=== PATIENT | male | born 1960 | race Caucasian/White ===

== ENCOUNTER 2019-05-19 15:44 | Emergency (ER) | payer BC ==
[2019-05-19] MEDS ORDERED: FLU Vacc QS2019-20(6MOS+)/PF 60 MCG/0.5 ML SYRINGE IM ONE (16:15)
[2019-05-19] MEDS ORDERED: Meclizine 12.5 MG Tab PO ONE (16:22)
[2019-05-19] MEDS ORDERED: Sodium Chloride 0.9% 500 ML IV SCH (16:30)
[2019-05-19] MEDS ORDERED: Sodium Chloride 0.9% 1,000 ML IV ONE (16:32)
--- NOTE | 2019-05-19 16:33 | EDM.PDOC ---
ED HPI GENERAL MEDICAL PROBLEM - General Source of Information: Reports: Patient History Limitations: Reports: No Limitations <Rasheeda Espinosa - Last Filed: 05/19/19 17:20> - History of Present Illness Onset: Gradual Duration: Day(s): (Yesterday) Severity: Moderate Improves with: Reports: None Worsens with: Reports: None Associated Symptoms: Reports: No Other Symptoms <Willie Jordan - Last Filed: 05/19/19 18:30> - General Chief Complaint: Syncope Stated Complaint: DIZZY Time Seen by Provider: 05/19/19 15:57 - History of Present Illness INITIAL COMMENTS - FREE TEXT/NARRATIVE: 59 year old male with complaints of dizziness when bending over. Pt states that last night he was bending over helping to get his undressed, she is on hospice, and he became dizzy and nauseated. When he stood up the dizziness resolved. States today that when he stands up he initially is dizzy but if he stands for a minute, this resolves. Also has dizziness when he looks up at the ceiling. Denies dizziness when laying flat and turning his head from side to side. (Rasheeda Espinosa) - Related Data Allergies Allergy/AdvReac Type Severity Reaction Status Date / Time No Known Allergies Allergy Verified 05/19/19 15:57 Home Meds: Home Meds Aspirin [Halfprin] 81 mg PO DAILY 05/19/19 [History] Fish Oil/[place]-3 Fatty Acids [Fish Oil 1,000 MG] 1,000 mg PO DAILY 05/19/19 [ History] Meclizine [Antivert] 25 mg PO Q6H PRN #30 tab 05/19/19 [Rx] Multivitamin [Multivitamins] 1 tab PO DAILY 05/19/19 [History] Rosuvastatin [Crestor] 20 mg PO DAILY 05/19/19 [History] Past Medical History HEENT History: Reports: Impaired Vision Other HEENT History: wears eyeglasses. Cardiovascular History: Reports: High Cholesterol Musculoskeletal History: Reports: Fracture Dermatologic History: Reports: Psoriasis - Infectious Disease History Infectious Disease History: Reports: Chicken Pox, Measles, Mumps, Shingles - Past Surgical History Musculoskeletal Surgical History: Reports: Arthroscopic Knee <Rasheeda Espinosa - Last Filed: 05/19/19 17:20> Social & Family History - Caffeine Use Caffeine Use: Reports: Coffee - Recreational Drug Use Recreational Drug Use: No <Rasheeda Espinosa - Last Filed: 05/19/19 17:20> ED ROS GENERAL - Review of Systems Review Of Systems: See Below Constitutional: Reports: No Symptoms HEENT: Reports: No Symptoms Respiratory: Reports: No Symptoms Cardiovascular: Reports: Lightheadedness. Denies: Chest Pain, Palpitations Endocrine: Reports: No Symptoms GI/Abdominal: Reports: Nausea : Reports: No Symptoms Musculoskeletal: Reports: No Symptoms Skin: Reports: Rash Neurological: Reports: Dizziness, Numbness (numbness to front of thighs) Psychiatric: Reports: No Symptoms Hematologic/Lymphatic: Reports: No Symptoms Immunologic: Reports: No Symptoms <Rasheeda Espinosa - Last Filed: 05/19/19 17:20> - Physical Exam Exam: See Below Exam Limited By: No Limitations General Appearance: Alert, WD/WN, No Apparent Distress Eye Exam: Bilateral Eye: PERRL Ears: Normal External Exam Nose: Normal Inspection Throat/Mouth: Normal Inspection, Normal Lips Head Exam: Atraumatic, Normocephalic Neck: Normal Inspection, Supple Respiratory/Chest: No Respiratory Distress, Lungs Clear, Normal Breath Sounds, No Accessory Muscle Use, Chest Non-Tender Cardiovascular: Normal Peripheral Pulses, Regular Rate, Rhythm, No Edema, No Murmur GI/Abdominal: Normal Bowel Sounds, Soft, Non-Tender, No Distention (Male) Exam: Deferred Rectal (Males) Exam: Deferred Neuro Exam (Abbreviated): Alert, Oriented, CN II-XII Intact, Normal Cognition, No Motor/Sensory Deficits Back Exam: Normal Inspection, Full Range of Motion Extremities: Normal Inspection, Normal Range of Motion, Non-Tender, No Pedal Edema Psychiatric: Normal Affect, Normal Mood Skin Exam: Warm, Dry, Intact, Normal Color, Rash (rash noted to center of chest/ pt reports that he's had for several years and is currently treated by his provider) <Rasheeda Espinosa - Last Filed: 05/19/19 17:20> EKG INTERPRETATION EKG Date: 05/19/19 Time: 16:37 Rhythm: Other (sinus bradycardia) Rate (Beats/Min): 54 [place]: Normal P-Wave: Present QRS: Normal ST-T: Normal QT: Normal <Willie Jordan - Last Filed: 05/19/19 18:30> Course <Rasheeda Espinosa - Last Filed: 05/19/19 17:20> <Willie Jordan - Last Filed: 05/19/19 18:30> - Vital Signs Last Recorded V/S: Last Vital Signs Temp 97.9 F 05/19/19 15:50 Pulse 58 L 05/19/19 15:50 Resp 12 05/19/19 15:50 BP 152/86 H 05/19/19 15:50 Pulse Ox 100 05/19/19 15:50 Orthostatic Blood Pressure [ 125/80 Standing] Orthostatic Blood Pressure [ 150/93 Sitting] Orthostatic Blood Pressure [ 152/86 Supine] - Orders/Labs/Meds Orders: Active Orders 24 hr Category Date Time Status EKG Documentation Completion [RC] STAT Care 05/19/19 16:22 Active Influenza Vaccine Charge [RC] .DISCHARGE Care 05/19/19 16:09 Active Chest 2V [CR] Stat Exams 05/19/19 16:22 Taken Head wo Cont [CT] Stat Exams 05/19/19 16:22 Taken Meclizine [Antivert] Med 05/19/19 18:23 Once 25 mg PO ONETIME ONE Labs: Laboratory Tests 05/19/19 05/19/19 Range/Units 16:40 16:40 WBC 11.87 H (4.23-9.07) K/mm3 RBC 5.58 (4.63-6.08) M/mm3 Hgb 15.8 (13.7-17.5) gm/dl Hct 45.4 (40.1-51.0) % MCV 81.4 (79.0-92.2) fl MCH 28.3 (25.7-32.2) pg MCHC 34.8 (32.2-35.5) g/dl RDW Std Deviation 40.2 (35.1-43.9) fL Plt Count 214 (163-337) K/mm3 MPV 10.5 (9.4-12.3) fl Neut % (Auto) 76.3 H (34.0-67.9) % Lymph % (Auto) 12.6 L (21.8-53.1) % [place] % (Auto) 8.3 (5.3-12.2) % Eos % (Auto) 2.2 (0.8-7.0) Baso % (Auto) 0.3 (0.1-1.2) % Neut # (Auto) 9.08 H (1.78-5.38) K/mm3 Lymph # (Auto) 1.49 (1.32-3.57) K/mm3 [place] # (Auto) 0.98 H (0.30-0.82) K/mm3 Eos # (Auto) 0.26 (0.04-0.54) K/mm3 Baso # (Auto) 0.03 (0.01-0.08) K/mm3 Manual Slide Review Normal smear Sodium 137 (136-145) mEq/L Potassium 3.8 (3.5-5.1) mEq/L Chloride 101 (98-107) mEq/L Carbon Dioxide 30 (21-32) mEq/L Anion Gap 9.8 (5-15) BUN 12 (7-18) mg/dL Creatinine 1.0 (0.7-1.3) mg/dL Est Cr Clr Drug Dosing 76.00 mL/min Estimated GFR (MDRD) > 60 (>60) mL/min BUN/Creatinine Ratio 12.0 L (14-18) Glucose 129 H (74-106) mg/dL Calcium 9.3 (8.5-10.1) mg/dL Total Bilirubin 0.4 (0.2-1.0) mg/dL AST 20 (15-37) U/L ALT 40 (16-63) U/L Alkaline Phosphatase 79 (46-116) U/L Troponin I < 0.017 (0.00-0.056) ng/mL Total Protein 7.6 (6.4-8.2) g/dl Albumin 4.0 (3.4-5.0) g/dl Globulin 3.6 gm/dL Albumin/Globulin Ratio 1.1 (1-2) TSH 3rd Generation 1.020 (0.358-3.74) uIU/mL Meds: Medications Discontinued Medications Generic Name Dose Route Start Last Admin Trade Name Freq PRN Reason Stop Dose Admin Sodium Chloride 1,000 mls @ 999 mls/hr 05/19/19 16:32 05/19/19 16:51 Normal Saline IV 05/19/19 17:32 999 mls/hr ONETIME ONE Administration Influenza Virus Vaccine 60 mcg 05/19/19 16:15 05/19/19 16:44 Fluzone Quad [id number] Syringe IM 05/19/19 16:16 60 mcg .ONCE ONE Administration Meclizine HCl 12.5 mg 05/19/19 16:22 05/19/19 16:43 Antivert PO 05/19/19 16:23 12.5 mg ONETIME ONE Administration - Re-Assessments/Exams Free Text/Narrative Re-Assessment/Exam: 05/19/19 17:20 Preliminary Radiology report available for CT of head. No acute intracranial process appreciated. (Rasheeda Espinosa) 05/19/19 18:26 I examined the patient and I agree with Rasheeda's assessment and plan. I ordered an IV NS bolus, EKG, CT of his head and labs. His EKG shows a NSR with no acute changes. His CT shows nothing acute. His WBC was slightly elevated at 11.87. His CMP looks good. His glucose is 129. his troponin is negative. His TSH is normal. He feels better. I will give him a dose of antivert here and a prescription for more. (Willie Jordan) Departure <Rasheeda Espinosa - Last Filed: 05/19/19 17:20> - Departure Time of Disposition: 18:30 Condition: Good - Discharge Information *PRESCRIPTION DRUG MONITORING PROGRAM REVIEWED*: No *COPY OF PRESCRIPTION DRUG MONITORING REPORT IN PATIENT AALIYAH: No <Willie Jordan - Last Filed: 05/19/19 18:30> - Departure Disposition: Home, Self-Care 01 Clinical Impression: Dizziness - Discharge Information Prescriptions: Meclizine [Antivert] 25 mg PO Q6H PRN #30 tab PRN Reason: Dizziness Referrals: Kota Perez MD [Primary Care Provider] - Forms: ED Department Discharge Additional Instructions: Drink plenty of fluids. Take antivert every 6 hours as needed for dizziness. Follow up with your doctor within a week. Please return if you are worse. - My Orders Last 24 Hours: My Active Orders 05/19/19 16:09 Influenza Vaccine Charge [RC] .DISCHARGE 05/19/19 18:23 Meclizine [Antivert] 25 mg PO ONETIME ONE - Assessment/Plan Last 24 Hours: My Active Orders 05/19/19 16:09 Influenza Vaccine Charge [RC] .DISCHARGE 05/19/19 18:23 Meclizine [Antivert] 25 mg PO ONETIME ONE
--- NOTE | 2019-05-20 07:38 | CT ---
Head CT Technique: Multiple axial sections through the brain were obtained. Intravenous contrast was not utilized. Comparison: No prior intracranial imaging is available. Findings: Ventricles along with basal cisterns and sulci over the convexities are within normal limits for the patient's age. No abnormal parenchymal densities are seen. No evidence of intracranial hemorrhage. No midline shift or mass effect is seen. Mastoid sinuses are clear. Visualized paranasal sinuses show minimal mucosal thickening. No acute calvarial abnormality is seen. Impression: 1. Minimal mucosal thickening within the paranasal sinuses which is believed to be incidental. 2. Nothing acute is seen on noncontrast head CT study. Diagnostic code #2 I agree with preliminary report from [facility], finalized on 05/19/19, 5:43 PM Central Time
--- NOTE | 2019-05-20 17:28 | CR ---
Chest: Two views of the chest were obtained. Comparison: No prior chest imaging. Heart size is normal. Tortuous thoracic aorta is seen. Lungs are clear. Bony structures are within normal limits for the patient's age. Impression: 1. Nothing acute is seen on two-view chest x-ray. Diagnostic code #1
== END 2019-05-19 18:40 | disposition home or self-care (01) ==
LOC: JD.ED 15:44
DX: R42 Dizziness and giddiness (principal); E78.00 Pure hypercholesterolemia, unspecified; Z79.82 Long term (current) use of aspirin; Z79.899 Other long term (current) drug therapy; Z23 Encounter for immunization
CPT/HCPCS: 36415; 70450; 71046; 80053; 84443; 84484; 85025; 90471; 90686; 93005; 96360; 96361; 99284; A9270; J7040; G0008

== ENCOUNTER 2019-08-02 09:12 | Inpatient (IN) | payer BC ==
--- NOTE | 2019-07-30 11:47 | PCM.PREANE ---
Preanesthetic Assessment - Anesthesia/Transfusion/Family Hx Anesthesia History: Prior Anesthesia Without Reaction Family History of Anesthesia Reaction: No Transfusion History: No Prior Transfusion(s) Intubation History: Unknown - Review of Systems General: No Symptoms Pulmonary: No Symptoms (Smoker: 1/2ppd times 30 years, ETOH: rarely) Cardiovascular: No Symptoms (History of elevated Coronary Artery Calcium score/ , history of elevated cholesterol) Gastrointestinal: No Symptoms (GERD rarely) Neurological: No Symptoms (History of vertigo/on meclizine prn), Numbness ( bilateral hands righ greater than left.) Other: Reports: None - Physical Assessment NPO Status Date: 08/02/19 NPO Status Time: 01:00 Vital Signs: HR:75 BP:130/81 Sat:98% Temp:97.8 Resp:16 Height: 1.75 m Weight: 80 kg ASA Class: 2 Mental Status: Alert & Oriented x3 Airway Class: Mallampati = 2 Dentition: Reports: Normal Dentition, Partial, [place](s), [place] Thyro-Mental Finger Breadths: 3 Mouth Opening Finger Breadths: 3 ROM/Head Extension: Full Lungs: Clear to Auscultation, Normal Respiratory Effort Cardiovascular: Regular Rate, Regular Rhythm, No Murmurs - Lab Values: Laboratory Last Values MRSA (PCR) Negative 07/16/19 13:21 All labs reviewed and noted and within acceptable ranges to proceed with scheduled procedure. - Imaging/EKG Impressions: EKG: SR rate= 64, probable LVH, with early repolarization CXR: unremarkable CT Heart Screen Score: Calcium artery score = 303, implying moderate atherosclerotic plaque/Dr. Perez denies any further need for cardiac follow up except start Crestor. - Allergies Allergies/Adverse Reactions: Allergies Allergy/AdvReac Type Severity Reaction Status Date / Time No Known Allergies Allergy Verified 07/30/19 12:54 - Anesthesia Plan Pre-Op Medication Ordered: None, Other (Pre-Op meds: lyrica, tylenol, oxycodone all P.O. @ 0937) - Acknowledgements Anesthesia Type Planned: Spinal (Right Adductor Canal block under US guidance for post operative pain control requested by Dr. Muir.) Pt an Appropriate Candidate for the Planned Anesthesia: Yes Alternatives and Risks of Anesthesia Discussed w Pt/Guardian: Yes Pt/Guardian Understands and Agrees with Anesthesia Plan: Yes PreAnesthesia Questionnaire HEENT History: Reports: Impaired Vision Other HEENT History: wears eyeglasses. Cardiovascular History: Reports: High Cholesterol Musculoskeletal History: Reports: Fracture Dermatologic History: Reports: Psoriasis - Infectious Disease History Infectious Disease History: Reports: Chicken Pox, Measles, Mumps, Shingles - Past Surgical History Musculoskeletal Surgical History: Reports: Arthroscopic Knee - HOME MEDS Home Medications: Home Meds Aspirin [Halfprin] 81 mg PO DAILY 05/19/19 [History] Fish Oil/[place]-3 Fatty Acids [Fish Oil 1,000 MG] 1,000 mg PO DAILY 05/19/19 [ History] Meclizine [Antivert] 25 mg PO Q6H PRN #30 tab 05/19/19 [Rx] Multivitamin [Multivitamins] 1 tab PO DAILY 05/19/19 [History] Rosuvastatin [Crestor] 20 mg PO DAILY 05/19/19 [History] Cholecalciferol (Vitamin D3) [Vitamin D3] 5,000 unit PO DAILY 07/30/19 [History] Triamcinolone Acetonide [Triamcinolone Acetonide 0.1% Crm] 1 dose TOP BID PRN [History] - CURRENT (IN HOUSE) MEDS Current Meds: Current Medications Lactated Ringer's (Ringers, Lactated) 1,000 mls @ 125 mls/hr IV ASDIRECTED YESSENIA Stop: 08/02/19 23:00 Lidocaine/Sodium Bicarbonate (Buffered Lidocaine 1% In Ns 8.4%) 0.25 ml IDERM ONETIME PRN PRN Reason: Prior to IV Start Stop: 08/02/19 18:00 Sodium Chloride (Saline Flush) 10 ml FLUSH ASDIRECTED PRN PRN Reason: Keep Vein Open Stop: 08/02/19 18:00
[~2019-08-02 09:12] MED LIST: Acetaminophen 325 MG Tab PO SCH; Bisacodyl 5 MG Tab PO PRN; Cyclobenzaprine 10 MG Tab PO PRN; EPINEPHrine 1 MG/ML SDV ONE; Ketamine 500 mg/10 ML MDV ONE; Ketorolac 30 MG/ML SDV ONE; Lactated Ringers 1,000 ML IV SCH; Lactated Ringers 1,000 ML ONE; Lidocaine 1% 6 ML ONE; Lidocaine 1%/Sod Bicarbonate in NS 8.4% 1 ML Syringe IDERM PRN; Magnesium Hydroxide 400 MG/5 ML Susp 30 ML Cup PO PRN; Midazolam 1 MG/ML 2 ML SDV ONE; Morphine 2 MG/ML Syringe IVPUSH PRN; Naloxone 0.4 MG/ML SDV IVPUSH PRN; Ondansetron 4 MG/2 ML SDV IVPUSH PRN; Ondansetron 4 MG/2 ML SDV ONE; Phenylephrine/Normal Saline 100 MCG/ML 10 ML Syringe ONE; Pregabalin 25 MG Cap PO SCH; Propofol 200 MG/20 ML SDV ONE; Ropivacaine 0.5% 5 MG/ML 30 ML SDV ONE; Scopolamine 1.5 MG Transdermal Patch TRDERM PRN; Sennosides 8.6 MG Tab PO PRN; Sodium Chloride 0.9% 10 ML Syringe FLUSH PRN; ceFAZolin 1 GM Vial ONE; fentaNYL 100 MCG/2 ML SDV ONE; oxyCODONE ER 10 MG TAB.ER PO SCH
[2019-08-02] MEDS ORDERED: Lactated Ringers 1,000 ML ONE (10:23)
[2019-08-02] MEDS ORDERED: diphenhydrAMINE 50 MG/ML SDV IVPUSH PRN (10:54)
[2019-08-02] MEDS ORDERED: HYDROmorphone 0.5 MG/0.5 ML Syringe IVPUSH PRN (10:54)
[2019-08-02] MEDS ORDERED: Albuterol 0.083% 2.5 MG/3 ML Neb Soln NEB PRN (10:54)
[2019-08-02] MEDS ORDERED: Ondansetron 4 MG/2 ML SDV IVPUSH PRN (10:54)
[2019-08-02] MEDS ORDERED: ePHEDrine 50 MG/ML SDV IVPUSH PRN (10:54)
[2019-08-02] MEDS ORDERED: fentaNYL 100 MCG/2 ML SDV IVPUSH PRN (10:54)
[2019-08-02] MEDS ORDERED: Phenylephrine 1 MG in Sodium Chloride 0.9% 10 ML IV SCH (11:00)
[2019-08-02] MEDS: Iodine/Sodium Iodide 2% Tincture 30 ML Bottle ONE ×2 (11:23→11:44)
[2019-08-02] MEDS ORDERED: Propofol 200 MG/20 ML SDV ONE (11:23)
[2019-08-02] MEDS: ceFAZolin 1 GM Vial ONE ×2 (11:23→11:47)
[2019-08-02] MEDS: Morphine 8 MG, EPINEPHrine 0.3 MG, Cefuroxime 750 MG, Ketorolac 30 MG, Sodium Chloride ... ONE ×15 (11:24→18:38)
[2019-08-02] MEDS: Vancomycin 1 GM SDV ONE ×2 (11:24→11:52)
[2019-08-02] MEDS: Bupivacaine 0.25% 10 ML SDV ONE ×2 (11:24→11:50)
[2019-08-02] MEDS ORDERED: Triamcinolone Acetonide 40 MG/ML 1 ML MDV ONE (11:31)
[2019-08-02] MEDS ORDERED: Bupivacaine 0.25% 10 ML SDV ONE (11:31)
--- NOTE | 2019-08-02 12:08 | PCM.SN ---
- Free Text/Narrative Note: Anesthesia Procedure Note: Right Adductor Canal Block Date: 08/02/2019 Time Out: 1231 Start: 1232 Stop: 1239 Surgical Procedure: Right Total Knee Arthroplasty Diagnosis: Bilateral Knee Osteoarthritits Current Procedure: Right Adductor Canal Block under US guidance for postoperative pain control requested by Dr. Muir. Patient chart reviewed, risk/benefits discussed with patient, consent obtained. Patient positioned supine, monitors/alarms on, oxygen placed via nasal cannula at 2 LPM. Right upper leg prepped with two chloropreps. (Sterile gloves, sterile US probe cover noted) 22gauge 4 inch stimiplex needle advanced under US guidance with location of Right Femoral artery, veins, and nerves located within the right adductor canal. Incremental dosing of 5mls with negative aspiration noted prior to each injection of 0.5% ropivacaine with 1:200,000 epinephrine. Total volume=25mls. See Nursing Notes for vital signs. Vital signs stable throughout. Nieves Maldonado CRNA
--- NOTE | 2019-08-02 12:28 | PCM.POSTAN ---
POST ANESTHESIA ASSESSMENT - MENTAL STATUS Mental Status: Alert - VITAL SIGNS Vital Signs: Last Vital Signs Temp 97.7 08/02/19 1220 Pulse 77 08/02/19 1220 Resp 15 08/02/19 1220 BP 95/60 08/02/19 1220 Pulse Ox 95% 08/02/19 1220 - RESPIRATORY Respiratory Status: Respiratory Rate WNL, Airway Patent, O2 Saturation Stable, Supplemental Oxygen - CARDIOVASCULAR CV Status: Pulse Rate WNL, Blood Pressure Stable - GASTROINTESTINAL GI Status: No Symptoms - POST OP HYDRATION Hydration Status: Adequate & Stable
--- NOTE | 2019-08-02 12:54 | CR ---
Right knee: AP and lateral views of the right knee were obtained. Comparison: No previous right knee study. Knee prosthesis is seen. Components are aligned. Soft tissue air is noted from the surgical procedure. Underlying bony structures are intact. Impression: 1. Satisfactory postoperative radiographic appearance of recently placed right knee prosthesis. Diagnostic code #2 This report was dictated in [place] Standard Time
[2019-08-02] MEDS ORDERED: Triamcinolone Acetonide 0.1% Crm 15 GM Tube TOP PRN (13:52)
[2019-08-02] MEDS ORDERED: Ketorolac 15 MG/ML SDV IVPUSH PRN (14:00)
[2019-08-02] MEDS: ceFAZolin 2 GM in Premix Bag 1 BAG IV SCH (18:05)
[2019-08-02] MEDS: Docusate Sodium 100 MG Cap PO SCH (20:29)
[2019-08-02] MEDS ORDERED: Rosuvastatin 10 MG Tab PO SCH (21:00)
[2019-08-02] MEDS ORDERED: Famotidine 20 MG Tab PO SCH (21:00)
[2019-08-03] MEDS: ceFAZolin 2 GM in Premix Bag 1 BAG IV SCH ×2 (02:42→09:48)
[2019-08-03] MEDS: Acetaminophen/oxyCODONE 325-5 MG Tab PO PRN ×2 (05:47→09:52)
--- NOTE | 2019-08-03 07:23 | PCM.SURGPN ---
- General Info Date of Service: 08/03/19 POD#: 1 Functional Status: Reports: Pain Controlled, Tolerating Diet, Ambulating, Urinating, Incentive Spirometry, Other (The pt states he will have the assistance of his daughters at home.) - Patient Data Vitals - Most Recent: Last Vital Signs Temp 97.9 F 08/03/19 05:52 Pulse 79 08/03/19 05:52 Resp 14 08/03/19 05:52 BP 120/63 08/03/19 05:52 Pulse Ox 92 L 08/03/19 05:52 Weight - Most Recent: 177 lb I&O - Last 24 Hours: Intake & Output 08/02/19 08/03/19 08/03/19 22:59 06:59 14:59 Intake Total 440 100 Balance 440 100 Lab Results Last 24 Hrs: Laboratory Results - last 24 hr 08/03/19 08/03/19 Range/Units 05:15 05:15 WBC 20.06 H (4.23-9.07) K/mm3 RBC 5.07 (4.63-6.08) M/mm3 Hgb 14.2 D (13.7-17.5) gm/dl Hct 42.2 (40.1-51.0) % MCV 83.2 (79.0-92.2) fl MCH 28.0 (25.7-32.2) pg MCHC 33.6 (32.2-35.5) g/dl RDW Std Deviation 42.6 (35.1-43.9) fL Plt Count 221 (163-337) K/mm3 MPV 11.1 (9.4-12.3) fl Sodium 134 L (136-145) mEq/L Potassium 4.3 (3.5-5.1) mEq/L Chloride 101 (98-107) mEq/L Carbon Dioxide 23 (21-32) mEq/L Anion Gap 14.3 (5-15) BUN 17 (7-18) mg/dL Creatinine 1.0 (0.7-1.3) mg/dL Est Cr Clr Drug Dosing 76.00 mL/min Estimated GFR (MDRD) > 60 (>60) mL/min BUN/Creatinine Ratio 17.0 (14-18) Glucose 156 H (74-106) mg/dL Calcium 8.6 (8.5-10.1) mg/dL Total Bilirubin 0.4 (0.2-1.0) mg/dL AST 18 (15-37) U/L ALT 38 (16-63) U/L Alkaline Phosphatase 70 (46-116) U/L Total Protein 6.6 (6.4-8.2) g/dl Albumin 3.2 L (3.4-5.0) g/dl Globulin 3.4 gm/dL Albumin/Globulin Ratio 0.9 L (1-2) Med Orders - Current: Current Medications Bisacodyl (Dulcolax) 5 mg PO DAILY PRN PRN Reason: Constipation Cholecalciferol (Vitamin D3) 5,000 unit PO DAILY [facility] Cyclobenzaprine HCl (Flexeril) 10 mg PO TID PRN PRN Reason: Spasms Last Admin: 08/02/19 16:21 Dose: 10 mg Docusate Sodium (Colace) 100 mg PO BID [facility] Last Admin: 08/02/19 20:29 Dose: 100 mg Famotidine (Pepcid) 20 mg PO Q12H [facility] Last Admin: 08/02/19 20:29 Dose: 20 mg Cefazolin Sodium/Dextrose 2 gm (/ Premix) 50 mls @ 100 mls/hr IV Q8H [facility] Stop: 08/03/19 10:29 Last Admin: 08/03/19 02:42 Dose: 100 mls/hr Ketorolac Tromethamine (Toradol) 15 mg IVPUSH Q6H PRN PRN Reason: Pain Last Admin: 08/02/19 18:03 Dose: 15 mg Magnesium Hydroxide (Milk Of Magnesia) 30 ml PO BID PRN PRN Reason: Constipation Morphine Sulfate (Morphine) 2 mg IVPUSH Q2H PRN PRN Reason: Breakthrough Pain Multivitamins (Thera) 1 each PO DAILY [facility] Naloxone HCl (Narcan) 0.1 mg IVPUSH Q5M PRN PRN Reason: Oversedation Ondansetron HCl (Zofran) 4 mg IVPUSH Q6H PRN PRN Reason: Nausea/Vomiting Oxycodone/Acetaminophen (Percocet 325-5 Mg) 1 - 2 tab PO Q4H PRN PRN Reason: Pain Last Admin: 08/03/19 05:47 Dose: 2 tab Rivaroxaban (Xarelto) 10 mg PO DAILY YESSENIA Rosuvastatin Calcium (Crestor) 20 mg PO BEDTIME YESSENIA Last Admin: 08/02/19 20:29 Dose: 20 mg Senna (Senna) 8.6 mg PO BID PRN PRN Reason: Constipation Triamcinolone Acetonide (Triamcinolone Acetonide 0.1% Crm) 0 gm TOP BID PRN PRN Reason: skin complications Discontinued Medications Acetaminophen (Tylenol) 975 mg PO ONETIME YESSENIA Stop: 08/02/19 12:00 Last Admin: 08/02/19 09:33 Dose: 975 mg Albuterol (Proventil Neb Soln) 2.5 mg NEB ONETIME PRN PRN Reason: bronchodilation Stop: 08/02/19 14:00 Bupivacaine HCl (Sensorcaine-Mpf 0.25%) Confirm Administered Dose 30 ml .ROUTE .STK-MED ONE Stop: 08/02/19 09:58 Last Admin: 08/02/19 11:50 Dose: 30 ml Bupivacaine HCl (Sensorcaine-Mpf 0.25%) Confirm Administered Dose 10 ml .ROUTE .STK-MED ONE Stop: 08/02/19 11:32 Last Admin: 08/02/19 12:10 Dose: 4 ml Cefazolin Sodium (Ancef) Confirm Administered Dose 2 gm .ROUTE .STK-MED ONE Stop: 08/02/19 06:08 Cefazolin Sodium (Ancef) Confirm Administered Dose 2 gm .ROUTE .STK-MED ONE Stop: 08/02/19 09:58 Last Admin: 08/02/19 11:47 Dose: 2 gm Morphine Sulfate 8 mg/Epinephrine HCl 0.3 mg/Cefuroxime Sodium 750 mg/Ketorolac Tromethamine 30 mg/Sodium Chloride 27.9 ml 0 mg .XX ONETIME ONE Stop: 08/02/19 08:01 Last Admin: 08/02/19 18:38 Dose: Not Given Diphenhydramine HCl (Benadryl) 25 mg IVPUSH Q6H PRN PRN Reason: pruritis Stop: 08/02/19 15:00 Ephedrine Sulfate (Ephedrine Sulfate) 5 mg IVPUSH ASDIRECTED PRN PRN Reason: Hypotension Stop: 08/02/19 15:00 Epinephrine HCl (Adrenalin) Confirm Administered Dose 1 mg .ROUTE .STK-MED ONE Stop: 08/02/19 05:47 Fentanyl (Sublimaze) Confirm Administered Dose 100 mcg .ROUTE .STK-MED ONE Stop: 08/02/19 06:05 Fentanyl (Sublimaze) Confirm Administered Dose 100 mcg .ROUTE .STK-MED ONE Stop: 08/02/19 07:43 Fentanyl (Sublimaze) 50 mcg IVPUSH Q5M PRN PRN Reason: Pain Stop: 08/02/19 13:00 Hydromorphone HCl (Dilaudid) 0.5 mg IVPUSH Q15M PRN PRN Reason: Pain (severe 7-10) Stop: 08/02/19 13:00 Lactated Ringer's (Ringers, Lactated) 1,000 mls @ 125 mls/hr IV ASDIRECTED YESSENIA Stop: 08/02/19 23:00 Lidocaine HCl (Xylocaine-Mpf 1%) Confirm Administered Dose 6 mls @ as directed .ROUTE .STK-MED ONE Stop: 08/02/19 06:05 Lactated Ringer's (Ringers, Lactated) Confirm Administered Dose 1,000 mls @ as directed .ROUTE .STK-MED ONE Stop: 08/02/19 06:05 Lactated Ringer's (Ringers, Lactated) Confirm Administered Dose 1,000 mls @ as directed .ROUTE .STK-MED ONE Stop: 08/02/19 10:24 Phenylephrine HCl 1 mg/ Sodium (Chloride) 10.1 mls @ 1 mls/sec IV TITRATE YESSENIA; Protocol Stop: 08/02/19 14:00 Iodine (Iodine 2% Mild Tincture) Confirm Administered Dose 30 ml .ROUTE .STK- MED ONE Stop: 08/02/19 09:58 Last Admin: 08/02/19 11:44 Dose: 18 ml Ketamine HCl (Ketalar) Confirm Administered Dose 500 mg .ROUTE .STK-MED ONE Stop: 08/02/19 06:06 Ketorolac Tromethamine (Toradol) Confirm Administered Dose 30 mg .ROUTE .STK- MED ONE Stop: 08/02/19 06:05 Lidocaine/Sodium Bicarbonate (Buffered Lidocaine 1% In Ns 8.4%) 0.25 ml IDERM ONETIME PRN PRN Reason: Prior to IV Start Stop: 08/02/19 18:00 Midazolam HCl (Versed 1 Mg/Ml) Confirm Administered Dose 2 mg .ROUTE .STK-MED ONE Stop: 08/02/19 06:06 Ondansetron HCl (Zofran) Confirm Administered Dose 4 mg .ROUTE .STK-MED ONE Stop: 08/02/19 06:05 Ondansetron HCl (Zofran) 4 mg IVPUSH ONETIME PRN PRN Reason: Nausea/Vomiting Stop: 08/02/19 15:00 Oxycodone HCl (Oxycontin) 10 mg PO ONETIME YESSENIA Stop: 08/02/19 12:00 Last Admin: 08/02/19 09:33 Dose: 10 mg Phenylephrine HCl (Phenylephrine In Ns 100 Mcg/Ml) Confirm Administered Dose 1 mg .ROUTE .STK-MED ONE Stop: 08/02/19 06:05 Pregabalin (Lyrica) 50 mg PO ONETIME YESSENIA Stop: 08/02/19 12:00 Last Admin: 08/02/19 09:33 Dose: 50 mg Propofol (Diprivan 20 Ml) Confirm Administered Dose 400 mg .ROUTE .STK-MED ONE Stop: 08/02/19 06:05 Propofol (Diprivan 20 Ml) Confirm Administered Dose 200 mg .ROUTE .STK-MED ONE Stop: 08/02/19 11:24 Ropivacaine (Naropin 0.5%) Confirm Administered Dose 30 ml .ROUTE .STK-MED ONE Stop: 08/02/19 05:47 Scopolamine (Transderm-Scop) 1.5 mg TRDERM ONETIME PRN PRN Reason: PONV Stop: 08/02/19 16:00 Last Admin: 08/02/19 09:37 Dose: 1.5 mg Sodium Chloride (Saline Flush) 10 ml FLUSH ASDIRECTED PRN PRN Reason: Keep Vein Open Stop: 08/02/19 18:00 Tranexamic Acid (Cyklokapron) Confirm Administered Dose 1,000 mg .ROUTE .STK- MED ONE Stop: 08/02/19 09:58 Last Admin: 08/02/19 11:56 Dose: 1,000 mg Triamcinolone Acetonide (Kenalog-40) Confirm Administered Dose 80 mg .ROUTE .STK -MED ONE Stop: 08/02/19 11:32 Last Admin: 08/02/19 12:10 Dose: 80 mg Vancomycin HCl (Vancomycin) Confirm Administered Dose 1 gm .ROUTE .STK-MED ONE Stop: 08/02/19 09:58 Last Admin: 08/02/19 11:52 Dose: 1 gm - Exam Wound/Incisions: Dressing Dry and Intact General: Alert, Cooperative, No Acute Distress Lungs: Normal Respiratory Effort Extremities: Other (NVS intact for BLE. Lisbet's negative for BLE.) Sepsis Event Note - Evaluation Sepsis Screening Result: No Definite Risk - Focused Exam Vital Signs: Vital Signs Temp Pulse Resp BP Pulse Ox 08/03/19 05:52 97.9 F 79 14 120/63 92 L 08/03/19 00:12 97.9 F 69 14 125/72 92 L 08/03/19 00:11 69 125/72 92 L 08/02/19 20:27 98.2 F 81 14 129/70 95 Date Exam was Performed: 08/03/19 Time Exam was Performed: 07:20 - Problem List Review Problem List Initiated/Reviewed/Updated: Yes - My Orders Last 24 Hours: Active Orders 24 hr Category Date Time Status Patient Status [ADT] Routine ADT 08/02/19 06:53 Active Ambulate [RC] PER UNIT ROUTINE Care 08/02/19 06:53 Active Antiembolic Devices [RC] PER UNIT ROUTINE Care 08/02/19 06:54 Active May Shower [RC] ASDIRECTED Care 08/02/19 06:53 Active Notify Provider [RC] ASDIRECTED Care 08/02/19 10:54 Active Oxygen Therapy [RC] PRN Care 08/02/19 06:53 Active RT Aerosol Therapy [RC] ASDIRECTED Care 08/02/19 10:57 Active RT Incentive Spirometry [RC] Q1HWA Care 08/02/19 06:52 Active Ready for Discharge [RC] PER UNIT ROUTINE Care 08/03/19 07:20 Ordered Up to Chair [RC] ASDIRECTED Care 08/02/19 06:53 Active Vital Signs [RC] Q4HR Care 08/02/19 06:53 Active OT Evaluation and Treatment [CONS] Routine Cons 08/02/19 06:52 Active PT Evaluation and Treatment [CONS] Routine Cons 08/02/19 06:52 Active Regular Diet [DIET] Diet 08/02/19 Lunch Active Acetaminophen/oxyCODONE [Percocet 325-5 MG] Med 08/02/19 06:53 Active 1 - 2 tab PO Q4H PRN Cholecalciferol (Vitamin D3) [Vitamin D3] Med 08/03/19 09:00 Active 5,000 unit PO DAILY Cyclobenzaprine [Flexeril] Med 08/02/19 06:53 Active 10 mg PO TID PRN Docusate Sodium [Colace] Med 08/02/19 21:00 Active 100 mg PO BID Famotidine [Pepcid] Med 08/02/19 21:00 Active 20 mg PO Q12H Ketorolac [Toradol] Med 08/02/19 14:00 Active 15 mg IVPUSH Q6H PRN Magnesium Hydroxide [Milk of Magnesia] Med 08/02/19 06:53 Active 30 ml PO BID PRN Morphine Med 08/02/19 06:53 Active 2 mg IVPUSH Q2H PRN Multivitamins,Therapeutic [Thera] Med 08/03/19 09:00 Active 1 each PO DAILY Naloxone [Narcan] Med 08/02/19 06:53 Active 0.1 mg IVPUSH Q5M PRN Ondansetron [Zofran] Med 08/02/19 06:53 Active 4 mg IVPUSH Q6H PRN Rivaroxaban [Xarelto] Med 08/03/19 09:00 Active 10 mg PO DAILY Rosuvastatin [Crestor] Med 08/02/19 21:00 Active 20 mg PO BEDTIME Sennosides [Senna] Med 08/02/19 06:53 Active 8.6 mg PO BID PRN Triamcinolone Acetonide [Triamcinolone Acetonide 0.1% Med 08/02/19 13:52 Active Crm] 0 gm TOP BID PRN bisacodyL [Dulcolax] Med 08/02/19 06:53 Active 5 mg PO DAILY PRN ceFAZolin [Ancef] 2 gm Med 08/02/19 18:00 Active Premix Bag 1 bag IV Q8H Antiembolic Hose [OM.PC] Per Unit Routine Oth 08/02/19 06:55 Ordered Ice Therapy [OM.PC] Per Unit Routine Oth 08/02/19 06:54 Ordered Sequential Compression Device [OM.PC] Per Unit Routine Oth 08/02/19 06:53 Ordered Resuscitation Status Routine Resus Stat 08/02/19 06:53 Ordered Medication Orders Bisacodyl (Dulcolax) 5 mg PO DAILY PRN PRN Reason: Constipation Cholecalciferol (Vitamin D3) 5,000 unit PO DAILY [facility] Cyclobenzaprine HCl (Flexeril) 10 mg PO TID PRN PRN Reason: Spasms Last Admin: 08/02/19 16:21 Dose: 10 mg Docusate Sodium (Colace) 100 mg PO BID [facility] Last Admin: 08/02/19 20:29 Dose: 100 mg Famotidine (Pepcid) 20 mg PO Q12H [facility] Last Admin: 08/02/19 20:29 Dose: 20 mg Cefazolin Sodium/Dextrose 2 gm (/ Premix) 50 mls @ 100 mls/hr IV Q8H [facility] Stop: 08/03/19 10:29 Last Admin: 08/03/19 02:42 Dose: 100 mls/hr Infusion: 08/02/19 18:35 Dose: 100 mls/hr Admin: 08/02/19 18:05 Dose: 100 mls/hr Ketorolac Tromethamine (Toradol) 15 mg IVPUSH Q6H PRN PRN Reason: Pain Last Admin: 08/02/19 18:03 Dose: 15 mg Magnesium Hydroxide (Milk Of Magnesia) 30 ml PO BID PRN PRN Reason: Constipation Morphine Sulfate (Morphine) 2 mg IVPUSH Q2H PRN PRN Reason: Breakthrough Pain Multivitamins (Thera) 1 each PO DAILY [facility] Naloxone HCl (Narcan) 0.1 mg IVPUSH Q5M PRN PRN Reason: Oversedation Ondansetron HCl (Zofran) 4 mg IVPUSH Q6H PRN PRN Reason: Nausea/Vomiting Oxycodone/Acetaminophen (Percocet 325-5 Mg) 1 - 2 tab PO Q4H PRN PRN Reason: Pain Last Admin: 08/03/19 05:47 Dose: 2 tab Rivaroxaban (Xarelto) 10 mg PO DAILY [facility] Rosuvastatin Calcium (Crestor) 20 mg PO BEDTIME [facility] Last Admin: 08/02/19 20:29 Dose: 20 mg Senna (Senna) 8.6 mg PO BID PRN PRN Reason: Constipation Triamcinolone Acetonide (Triamcinolone Acetonide 0.1% Crm) 0 gm TOP BID PRN PRN Reason: skin complications - Assessment Assessment (Free Text/Narrative):: POD#1 - right TKA with left knee cortisone injection - Plan Plan (Free Text/Narrative):: 1. Hgb 14.2. 2. Leukocytosis likely due to hx leukocytosis, cortisone injection provided yesterday, physiological surgical stress. Will have pt f/u with PCP. 3. Discharge to home today. 4. Xarelto (pt is a smoker), frequent mobility, TEDs. The pt's case was discussed with Dr. Muir.
--- NOTE | 2019-08-03 08:13 | PCM.DCSUM1 ---
Discharge Summary - Hospital Course Brief History: Fabian is a 59 yo male who underwent right TKA with left knee cortisone injection with Dr. Muir on 08-02-19. The procedure was completed under spinal anesthesia with sedation. The pt tolerated the procedure well and was admitted to the torch heater Unit under Medical-Surgical status. The pt's Hospital course was uneventful. The pt's Hgb on POD#1 was 14.2. On POD#1, Xarelto 10mg PO daily was initiated for VTE prophylaxis. SCDs and TEDs were also ordered. A Mepilex dressing was placed at the incision site at the time of surgery and remained clean and dry. The pt participated in P.T. and O.T. and progressed well. The pt was allowed to WBAT and used a FWW for mobility. On POD#1, the pt was deemed appropriate to discharge to home with his daughters. - Discharge Data Discharge Date: 08/03/19 Discharge Disposition: Home, Self-Care 01 Condition: Good - Referral to Home Health Primary Care Physician: Kota Perez MD - Patient Summary/Data Consults: Consultations 08/02/19 06:52 OT Evaluation and Treatment [CONS] Routine PT Evaluation and Treatment [CONS] Routine - Patient Instructions Diet: Usual Diet as Tolerated Activity: Apply Ice, As Tolerated, Elevate Extremity, Full Weight Bearing Driving: Do Not Drive Showering/Bathing: May Shower Wound/Incision Care: Keep Operative Site/Wound Site Clean and Dry, Do NOT Change Dressing Notify Provider of: Fever, Increased Pain, Swelling and Redness, Drainage, Nausea and/or Vomiting Other/Special Instructions: Please get up and moving around EVERY HOUR while awake. This helps to prevent blood clots. Please use your walker and have help with mobility as needed. Take a short walk in your home every hour while awake. Please take the Xarelto blood thinner medication daily as directed. At home, please complete the exercises that you learned during the Hospital stay. Schedule for physical therapy. Use the pain medication as needed. The medication may cause drowsiness and constipation. Contact your primary care provider for instructions if you are constipated. You may use a stool softener like docusate sodium or Colace 100mg twice daily and/or a laxative like Miralax daily for constipation. Increase your water and fiber intake while you are using the pain medication. Discontinue use of the pain medication as soon as able. Please do not use other medications that may cause drowsiness (other pain medications, anxiety pills, cold medications, sleeping pills, etc) while using the prescription pain medication. Do not use alcohol while using the pain medication. You may use acetaminophen or Tylenol for pain management, however, please ensure you are not using over 4000 mg or 4 grams of acetaminophen per day from all sources. Your pain medication has 325mg of acetaminophen per tablet. At this time, please do not use ibuprofen (Motrin, Advil) or naproxen (Aleve) for pain management as you are using the Xarelto. When the Xarelto course is completed in 4 weeks, you could use ibuprofen or naproxen for pain management (if this is allowed by your primary care provider) . Wear the REJI hose during the day and you may remove these at night. Elevate the limb to decrease swelling. Place ice to the area often. Place a towel between your skin and the blue pad. Use the incentive spirometer often. Take deep breaths throughout the day. Please keep the dressing in place until follow -up. Notify the Clinic if the dressing becomes saturated. Increase your protein intake while you are healing. You may resume use of fish oil in 2 weeks. PLEASE SCHEDULE a FOLLOW-UP APPOINTMENT with your primary care provider to monitor your blood count. Call the Clinic with questions or concerns - [phone]. - Discharge Plan *PRESCRIPTION DRUG MONITORING PROGRAM REVIEWED*: No *COPY OF PRESCRIPTION DRUG MONITORING REPORT IN PATIENT AALIYAH: No Prescriptions/Med Rec: Acetaminophen/oxyCODONE [Percocet 325-5 MG] 1 - 2 tab PO Q4H PRN #60 tablet PRN Reason: Pain Cyclobenzaprine [Flexeril] 10 mg PO BID PRN #30 tablet PRN Reason: Spasms Rivaroxaban [Xarelto] 10 mg PO DAILY #30 tablet Home Medications: Home Meds Multivitamin [Multivitamins] 1 tab PO DAILY 05/19/19 [History] Rosuvastatin [Crestor] 20 mg PO DAILY 05/19/19 [History] Cholecalciferol (Vitamin D3) [Vitamin D3] 5,000 unit PO DAILY 07/30/19 [History] Triamcinolone Acetonide [Triamcinolone Acetonide 0.1% Crm] 1 dose TOP BID PRN [History] Acetaminophen/oxyCODONE [Percocet 325-5 MG] 1 - 2 tab PO Q4H PRN #60 tablet 02/13 [Rx] Cyclobenzaprine [Flexeril] 10 mg PO BID PRN #30 tablet 08/03/19 [Rx] Docusate Sodium [Colace] 100 mg PO BID cap 08/03/19 [Rx] Famotidine [Pepcid] 20 mg PO Q12H tablet 08/03/19 [Rx] Magnesium Hydroxide [Milk of Magnesia] 30 ml PO BID PRN cup 08/03/19 [Rx] Rivaroxaban [Xarelto] 10 mg PO DAILY #30 tablet 08/03/19 [Rx] Sennosides [Senna] 8.6 mg PO BID PRN tablet 08/03/19 [Rx] bisacodyL [Dulcolax] 5 mg PO DAILY PRN tablet 08/03/19 [Rx] Patient Handouts: Total Knee Replacement, [id number], Steps to Quit Smoking Referrals: Lillian Abad PA-C [Physician Recreational Programs Director] - - Discharge Summary/Plan Comment DC Time >30 min.: No - Patient Data Vitals - Most Recent: Last Vital Signs Temp 97.9 F 08/03/19 05:52 Pulse 79 08/03/19 05:52 Resp 14 08/03/19 05:52 BP 120/63 08/03/19 05:52 Pulse Ox 92 L 08/03/19 05:52 Weight - Most Recent: 177 lb I&O - Last 24 hours: Intake & Output 08/02/19 08/03/19 08/03/19 22:59 06:59 14:59 Intake Total 440 100 Balance 440 100 Lab Results - Last 24 hrs: Laboratory Results - last 24 hr 08/03/19 08/03/19 Range/Units 05:15 05:15 WBC 20.06 H (4.23-9.07) K/mm3 RBC 5.07 (4.63-6.08) M/mm3 Hgb 14.2 D (13.7-17.5) gm/dl Hct 42.2 (40.1-51.0) % MCV 83.2 (79.0-92.2) fl MCH 28.0 (25.7-32.2) pg MCHC 33.6 (32.2-35.5) g/dl RDW Std Deviation 42.6 (35.1-43.9) fL Plt Count 221 (163-337) K/mm3 MPV 11.1 (9.4-12.3) fl Sodium 134 L (136-145) mEq/L Potassium 4.3 (3.5-5.1) mEq/L Chloride 101 (98-107) mEq/L Carbon Dioxide 23 (21-32) mEq/L Anion Gap 14.3 (5-15) BUN 17 (7-18) mg/dL Creatinine 1.0 (0.7-1.3) mg/dL Est Cr Clr Drug Dosing 76.00 mL/min Estimated GFR (MDRD) > 60 (>60) mL/min BUN/Creatinine Ratio 17.0 (14-18) Glucose 156 H (74-106) mg/dL Calcium 8.6 (8.5-10.1) mg/dL Total Bilirubin 0.4 (0.2-1.0) mg/dL AST 18 (15-37) U/L ALT 38 (16-63) U/L Alkaline Phosphatase 70 (46-116) U/L Total Protein 6.6 (6.4-8.2) g/dl Albumin 3.2 L (3.4-5.0) g/dl Globulin 3.4 gm/dL Albumin/Globulin Ratio 0.9 L (1-2) Med Orders - Current: Current Medications Bisacodyl (Dulcolax) 5 mg PO DAILY PRN PRN Reason: Constipation Cholecalciferol (Vitamin D3) 5,000 unit PO DAILY [facility] Cyclobenzaprine HCl (Flexeril) 10 mg PO TID PRN PRN Reason: Spasms Last Admin: 08/02/19 16:21 Dose: 10 mg Docusate Sodium (Colace) 100 mg PO BID [facility] Last Admin: 08/02/19 20:29 Dose: 100 mg Famotidine (Pepcid) 20 mg PO Q12H [facility] Cefazolin Sodium/Dextrose 2 gm (/ Premix) 50 mls @ 100 mls/hr IV Q8H [facility] Stop: 08/03/19 10:29 Last Admin: 08/03/19 02:42 Dose: 100 mls/hr Ketorolac Tromethamine (Toradol) 15 mg IVPUSH Q6H PRN PRN Reason: Pain Last Admin: 08/02/19 18:03 Dose: 15 mg Magnesium Hydroxide (Milk Of Magnesia) 30 ml PO BID PRN PRN Reason: Constipation Morphine Sulfate (Morphine) 2 mg IVPUSH Q2H PRN PRN Reason: Breakthrough Pain Multivitamins (Thera) 1 each PO DAILY [facility] Naloxone HCl (Narcan) 0.1 mg IVPUSH Q5M PRN PRN Reason: Oversedation Ondansetron HCl (Zofran) 4 mg IVPUSH Q6H PRN PRN Reason: Nausea/Vomiting Oxycodone/Acetaminophen (Percocet 325-5 Mg) 1 - 2 tab PO Q4H PRN PRN Reason: Pain Last Admin: 08/03/19 05:47 Dose: 2 tab Rivaroxaban (Xarelto) 10 mg PO DAILY [facility] Rosuvastatin Calcium (Crestor) 20 mg PO BEDTIME [facility] Last Admin: 08/02/19 20:29 Dose: 20 mg Senna (Senna) 8.6 mg PO BID PRN PRN Reason: Constipation Triamcinolone Acetonide (Triamcinolone Acetonide 0.1% Crm) 0 gm TOP BID PRN PRN Reason: skin complications Discontinued Medications Acetaminophen (Tylenol) 975 mg PO ONETIME [facility] Stop: 08/02/19 12:00 Last Admin: 08/02/19 09:33 Dose: 975 mg Albuterol (Proventil Neb Soln) 2.5 mg NEB ONETIME PRN PRN Reason: bronchodilation Stop: 08/02/19 14:00 Bupivacaine HCl (Sensorcaine-Mpf 0.25%) Confirm Administered Dose 30 ml .ROUTE .STK-MED ONE Stop: 08/02/19 09:58 Last Admin: 08/02/19 11:50 Dose: 30 ml Bupivacaine HCl (Sensorcaine-Mpf 0.25%) Confirm Administered Dose 10 ml .ROUTE .STK-MED ONE Stop: 08/02/19 11:32 Last Admin: 08/02/19 12:10 Dose: 4 ml Cefazolin Sodium (Ancef) Confirm Administered Dose 2 gm .ROUTE .STK-MED ONE Stop: 08/02/19 06:08 Cefazolin Sodium (Ancef) Confirm Administered Dose 2 gm .ROUTE .STK-MED ONE Stop: 08/02/19 09:58 Last Admin: 08/02/19 11:47 Dose: 2 gm Morphine Sulfate 8 mg/Epinephrine HCl 0.3 mg/Cefuroxime Sodium 750 mg/Ketorolac Tromethamine 30 mg/Sodium Chloride 27.9 ml 0 mg .XX ONETIME ONE Stop: 08/02/19 08:01 Last Admin: 08/02/19 18:38 Dose: Not Given Diphenhydramine HCl (Benadryl) 25 mg IVPUSH Q6H PRN PRN Reason: pruritis Stop: 08/02/19 15:00 Ephedrine Sulfate (Ephedrine Sulfate) 5 mg IVPUSH ASDIRECTED PRN PRN Reason: Hypotension Stop: 08/02/19 15:00 Epinephrine HCl (Adrenalin) Confirm Administered Dose 1 mg .ROUTE .STK-MED ONE Stop: 08/02/19 05:47 Famotidine (Pepcid) 20 mg PO Q12H [facility] Last Admin: 08/02/19 20:29 Dose: 20 mg Fentanyl (Sublimaze) Confirm Administered Dose 100 mcg .ROUTE .STK-MED ONE Stop: 08/02/19 06:05 Fentanyl (Sublimaze) Confirm Administered Dose 100 mcg .ROUTE .STK-MED ONE Stop: 08/02/19 07:43 Fentanyl (Sublimaze) 50 mcg IVPUSH Q5M PRN PRN Reason: Pain Stop: 08/02/19 13:00 Hydromorphone HCl (Dilaudid) 0.5 mg IVPUSH Q15M PRN PRN Reason: Pain (severe 7-10) Stop: 08/02/19 13:00 Lactated Ringer's (Ringers, Lactated) 1,000 mls @ 125 mls/hr IV ASDIRECTED YESSENIA Stop: 08/02/19 23:00 Lidocaine HCl (Xylocaine-Mpf 1%) Confirm Administered Dose 6 mls @ as directed .ROUTE .STK-MED ONE Stop: 08/02/19 06:05 Lactated Ringer's (Ringers, Lactated) Confirm Administered Dose 1,000 mls @ as directed .ROUTE .STK-MED ONE Stop: 08/02/19 06:05 Lactated Ringer's (Ringers, Lactated) Confirm Administered Dose 1,000 mls @ as directed .ROUTE .STK-MED ONE Stop: 08/02/19 10:24 Phenylephrine HCl 1 mg/ Sodium (Chloride) 10.1 mls @ 1 mls/sec IV TITRATE YESSENIA; Protocol Stop: 08/02/19 14:00 Iodine (Iodine 2% Mild Tincture) Confirm Administered Dose 30 ml .ROUTE .STK- MED ONE Stop: 08/02/19 09:58 Last Admin: 08/02/19 11:44 Dose: 18 ml Ketamine HCl (Ketalar) Confirm Administered Dose 500 mg .ROUTE .ST-MED ONE Stop: 08/02/19 06:06 Ketorolac Tromethamine (Toradol) Confirm Administered Dose 30 mg .ROUTE .STK- MED ONE Stop: 08/02/19 06:05 Lidocaine/Sodium Bicarbonate (Buffered Lidocaine 1% In Ns 8.4%) 0.25 ml IDERM ONETIME PRN PRN Reason: Prior to IV Start Stop: 08/02/19 18:00 Midazolam HCl (Versed 1 Mg/Ml) Confirm Administered Dose 2 mg .ROUTE .ST-MED ONE Stop: 08/02/19 06:06 Ondansetron HCl (Zofran) Confirm Administered Dose 4 mg .ROUTE .STFloqq-MED ONE Stop: 08/02/19 06:05 Ondansetron HCl (Zofran) 4 mg IVPUSH ONETIME PRN PRN Reason: Nausea/Vomiting Stop: 08/02/19 15:00 Oxycodone HCl (Oxycontin) 10 mg PO ONETIME YESSENIA Stop: 08/02/19 12:00 Last Admin: 08/02/19 09:33 Dose: 10 mg Phenylephrine HCl (Phenylephrine In Ns 100 Mcg/Ml) Confirm Administered Dose 1 mg .ROUTE .ST-MED ONE Stop: 08/02/19 06:05 Pregabalin (Lyrica) 50 mg PO ONETIME YESSENIA Stop: 08/02/19 12:00 Last Admin: 08/02/19 09:33 Dose: 50 mg Propofol (Diprivan 20 Ml) Confirm Administered Dose 400 mg .ROUTE .STK-MED ONE Stop: 08/02/19 06:05 Propofol (Diprivan 20 Ml) Confirm Administered Dose 200 mg .ROUTE .STK-MED ONE Stop: 08/02/19 11:24 Ropivacaine (Naropin 0.5%) Confirm Administered Dose 30 ml .ROUTE .STK-MED ONE Stop: 08/02/19 05:47 Scopolamine (Transderm-Scop) 1.5 mg TRDERM ONETIME PRN PRN Reason: PONV Stop: 08/02/19 16:00 Last Admin: 08/02/19 09:37 Dose: 1.5 mg Sodium Chloride (Saline Flush) 10 ml FLUSH ASDIRECTED PRN PRN Reason: Keep Vein Open Stop: 08/02/19 18:00 Tranexamic Acid (Cyklokapron) Confirm Administered Dose 1,000 mg .ROUTE .STK- MED ONE Stop: 08/02/19 09:58 Last Admin: 08/02/19 11:56 Dose: 1,000 mg Triamcinolone Acetonide (Kenalog-40) Confirm Administered Dose 80 mg .ROUTE .STK -MED ONE Stop: 08/02/19 11:32 Last Admin: 08/02/19 12:10 Dose: 80 mg Vancomycin HCl (Vancomycin) Confirm Administered Dose 1 gm .ROUTE .STK-MED ONE Stop: 08/02/19 09:58 Last Admin: 08/02/19 11:52 Dose: 1 gm
[2019-08-03] MEDS: Docusate Sodium 100 MG Cap PO SCH (08:31)
[2019-08-03] MEDS ORDERED: Multivitamins,Therapeutic Tab PO SCH (09:00)
[2019-08-03] MEDS ORDERED: Cholecalciferol (Vitamin D3) 5,000 UNIT Tab PO SCH (09:00)
[2019-08-03] MEDS ORDERED: Rivaroxaban 10 MG Tab PO SCH (09:00)
[2019-08-03] MEDS ORDERED: Famotidine 10 MG Tab PO SCH (09:00)
--- NOTE | 2019-08-03 09:12 | PCM48HPAN ---
Post Anesthesia Note - EVALUATION WITHIN 48HRS OF ANESTHETIC Vital Signs in Normal Range: Yes Patient Participated in Evaluation: Yes Respiratory Function Stable: Yes Airway Patent: Yes Cardiovascular Function Stable: Yes Hydration Status Stable: Yes Pain Control Satisfactory: Yes Nausea and Vomiting Control Satisfactory: Yes Mental Status Recovered: Yes Vital Signs: Last Vital Signs Temp 97.9 F 08/03/19 05:52 Pulse 79 08/03/19 05:52 Resp 14 08/03/19 05:52 BP 120/63 08/03/19 05:52 Pulse Ox 92 L 08/03/19 05:52 - COMMENTS/OBSERVATIONS Free Text/Narrative:: No complaints. Anesthesia was good
--- NOTE | 2019-08-05 07:51 | PCM.OPNOTE ---
- General Post-Op/Procedure Note Date of Surgery/Procedure: 08/02/19 Operative Procedure(s): right total knee arthroplasty with left knee corticosteroid injection Pre Op Diagnosis: bilateral knee arthroplasty Post-Op Diagnosis: Same Anesthesia Technique: Local, MAC, Spinal Primary Surgeon: Liborio Muir Anesthesia Provider: Nieves Maldonado Rn Disease Management: Lillian Abad Rn Disease Management: Porsha Barrera EBL in mLs: 5 Complications: None Condition: Good Free Text/Narrative:: 6 femur 5 tibia 9mm 35x10
--- NOTE | 2019-08-05 08:32 | OR ---
DATE OF OPERATION: 08/02/2019 SURGEON: Liborio Muir MD OPERATION PERFORMED: Right total knee arthroplasty with left knee corticosteroid injection. PREOPERATIVE DIAGNOSIS: Bilateral knee osteoarthrosis. POSTOPERATIVE DIAGNOSIS: Bilateral knee osteoarthrosis. ANESTHESIA: Local MAC with spinal. ANESTHESIA PROVIDER: Nieves Maldonado CRNA. ASSISTANTS: Lillian Abad PA-C, and Porsha Barrera LPN. ESTIMATED BLOOD LOSS: 5 mL. COMPLICATIONS: None. CONDITION: Stable. IMPLANT: 1. [place] size 6 cemented PS femur. 2. [place] size 5 cemented [place]buck tibial baseplate. 3. [place] size 5, 9 mm PS X3 polyethylene. 4. [place] size 35 x 10 mm cemented asymmetric patella. DESCRIPTION OF PROCEDURE: The patient was identified in the preop holding area. Proper site was marked and identified by the surgeon. The patient was taken back to the operating theater. After adequate anesthesia, the patient's right lower extremity had a nonsterile tourniquet applied and it was sterilely prepped and draped in the usual sterile fashion. OR time-out was performed. The patient received 2 g IV Ancef. At this time, the right lower extremity was exsanguinated. Tourniquet was insufflated to 300 mmHg. Standard medial parapatellar incision was made. Medial parapatellar arthrotomy was created. Deep fibers of the MCL were raised and anterior fat pad was resected. At this time, attention was turned to the patella. Patella measured 24, it was resected to a 14 for 35 x 10 mm patella. Drill holes were then drilled and found to be in adequate position. The drill was then drilled in the distal femur and the intramedullary distal femoral cutting guide was then placed. 8 mm was resected off the distal femur and was found to be an adequate resection. Sizing guide was placed. It was found to be a size 6 cemented PS femur that was shown on the implant record at the beginning of this dictation. The drill holes were drilled for the epicondylar axis using Whitesides line and epicondyles as reference. At this time, the 4-in-1 cutting block was placed. An anterior posterior and anterior and posterior chamfer cuts were then completed. Box cut was completed at this time. Attention was turned to the tibia. The posterior medial lateral retractors were placed. The extramedullary tibial guide was placed. It was placed in the old footprint of the ACL. It was aligned with the center of the ankle and 0 degrees of slope, 9 mm was then resected off the unaffected side. There was found to be an acceptable reduction. At this time, posterior osteophytes were removed along with medial and lateral meniscus. A trial implant was placed with a correct sized tibia that was mentioned at the beginning of the dictation. A [place] size 5, 9 mm PS X3 polyethylene insert was then placed. The patient's knee was brought through range of motion. The patella was tracking centrally and was stable to varus and valgus stress. Alignment was found to be roughly at 0 degrees. The tibia was stamped and drilled in proper rotation. The universal tibial base plate was impacted in place. Next, the [place] size 6 cemented PS femur impacted into place and the [place] size 5, 9 mm PS X3 polyethylene insert was placed. The patient's knee was brought into full extension. The patella was then cemented in place at this time. One liter dilute Betadine solution was irrigated through the knee along with 3 L of pulse lavage irrigation with Ancef. Periarticular injection was then completed. The patient's knee was brought through a range of motion. Once the cement had time to set up and it was found to be stable to varus valgus stress, the patella was tracking centrally with full range of motion. At this time, a #2 barbed suture was used for closure of the medial parapatellar arthrotomy. Topical tranexamic acid was placed. 2-0 Vicryl was used subcutaneously, Prineo was used for the skin. The patient tolerated the procedure well and was sent to the PACU in stable condition. After this was completed under sterile technique, 2 mL of 40 mg Kenalog and 4 mL of 0.25% Marcaine were injected into left knee. The patient tolerated that as well. MMLEONA /[id number] MAHOGANY
== END 2019-08-03 10:40 | disposition home or self-care (01) | DRG 302 ==
LOC: JD.OB 09:12
PROVIDERS: ADMIT Orthopaedic Surgery; ATTEND Orthopaedic Surgery
PROC: 0SRC0J9 Replacement of Right Knee Joint with Synthetic Substitute, Cemented, Open Approach (ICD-10-PCS; principal; 2019-08-02)
PROC: 3E0U33Z Introduction of Anti-inflammatory into Joints, Percutaneous Approach (ICD-10-PCS; 2019-08-02)
DX: M17.0 Bilateral primary osteoarthritis of knee (principal); H54.7 Unspecified visual loss; F17.210 Nicotine dependence, cigarettes, uncomplicated; E78.5 Hyperlipidemia, unspecified; K21.9 Gastro-esophageal reflux disease without esophagitis; E78.00 Pure hypercholesterolemia, unspecified; Z79.82 Long term (current) use of aspirin; Z79.899 Other long term (current) drug therapy; Z79.01 Long term (current) use of anticoagulants
CPT/HCPCS: 01402; 36415; 64450; 73560-26-RT; 73560-RT; 80053; 85027; 87641; 97110-GP; 97116-GP; 97161-GP; 97165-GO; 97535-GO; A9270-GY; C1713; C1776; J0171; J0690; J0697; J1885; J2001; J2250; J2270; J2370; J2405; J2704; J2795; J3010; J3301; J3370; J3490; J7120

== ENCOUNTER 2019-10-07 06:55 | Inpatient (IN) | payer BC ==
[~2019-10-07 06:55] MED LIST changes: -Acetaminophen 325 MG Tab PO SCH; -Bisacodyl 5 MG Tab PO PRN; -EPINEPHrine 1 MG/ML SDV ONE; -Ketamine 500 mg/10 ML MDV ONE; -Ketorolac 30 MG/ML SDV ONE; -Lactated Ringers 1,000 ML ONE; -Lidocaine 1% 6 ML ONE; -Magnesium Hydroxide 400 MG/5 ML Susp 30 ML Cup PO PRN; -Midazolam 1 MG/ML 2 ML SDV ONE; -Ondansetron 4 MG/2 ML SDV ONE; -Phenylephrine/Normal Saline 100 MCG/ML 10 ML Syringe ONE; -Pregabalin 25 MG Cap PO SCH; -Propofol 200 MG/20 ML SDV ONE; -Ropivacaine 0.5% 5 MG/ML 30 ML SDV ONE; -Scopolamine 1.5 MG Transdermal Patch TRDERM PRN; -Sennosides 8.6 MG Tab PO PRN; -ceFAZolin 1 GM Vial ONE; -fentaNYL 100 MCG/2 ML SDV ONE; -oxyCODONE ER 10 MG TAB.ER PO SCH
[2019-10-07] MEDS ORDERED: oxyCODONE ER 10 MG TAB.ER PO SCH (07:00)
[2019-10-07] MEDS ORDERED: Acetaminophen 325 MG Tab PO SCH (07:00)
[2019-10-07] MEDS ORDERED: Pregabalin 25 MG Cap PO SCH (07:00)
--- NOTE | 2019-10-07 07:42 | PCM.PREANE ---
Preanesthetic Assessment - Procedure Proposed Procedure: Left total knee Arthroplasty - Anesthesia/Transfusion/Family Hx Anesthesia History: Prior Anesthesia Without Reaction Family History of Anesthesia Reaction: No Transfusion History: No Prior Transfusion(s) Intubation History: Unknown - Review of Systems General: No Symptoms Pulmonary: No Symptoms Cardiovascular: No Symptoms Gastrointestinal: No Symptoms Neurological: Numbness (on and off in fingers) Other: Reports: None - Physical Assessment NPO Status Date: 10/06/19 NPO Status Time: 00:00 Height: 1.73 m Weight: 80.8 kg ASA Class: 2 Mental Status: Alert & Oriented x3 Airway Class: Mallampati = 1 Dentition: Reports: Partial (bottom), [place](s), [place] Thyro-Mental Finger Breadths: 3 Mouth Opening Finger Breadths: 3 ROM/Head Extension: Full Lungs: Clear to Auscultation, Normal Respiratory Effort Cardiovascular: Regular Rate, Regular Rhythm - Lab Values: Laboratory Last Values MRSA (PCR) Negative 09/14/19 12:10 - Imaging/EKG Impressions: EKG SR rate 64 - Allergies Allergies/Adverse Reactions: Allergies Allergy/AdvReac Type Severity Reaction Status Date / Time No Known Allergies Allergy Verified 10/06/19 13:31 - Blood Blood Available: No Product(s) Available: None - Anesthesia Plan Pre-Op Medication Ordered: None - Acknowledgements Anesthesia Type Planned: Spinal, Regional Block (post-op femoral block for post- op pain control) Pt an Appropriate Candidate for the Planned Anesthesia: Yes Alternatives and Risks of Anesthesia Discussed w Pt/Guardian: Yes Pt/Guardian Understands and Agrees with Anesthesia Plan: Yes PreAnesthesia Questionnaire HEENT History: Reports: Impaired Vision Other HEENT History: wears eyeglasses. Cardiovascular History: Reports: High Cholesterol Other Cardiovascular History: elevated coronary artery calcium score Respiratory History: Reports: None Gastrointestinal History: Reports: None, GERD Genitourinary History: Reports: None STATEMENT PROCESSOR History: Reports: None Musculoskeletal History: Reports: Arthritis, Fracture Neurological History: Reports: None Psychiatric History: Reports: None Endocrine/Metabolic History: Reports: None Hematologic History: Reports: None Immunologic History: Reports: None Oncologic (Cancer) History: Reports: None Dermatologic History: Reports: Psoriasis - Infectious Disease History Infectious Disease History: Reports: Chicken Pox, Measles, Mumps, Shingles - Past Surgical History Head Surgeries/Procedures: Reports: None HEENT Surgical History: Reports: None Cardiovascular Surgical History: Reports: None Respiratory Surgical History: Reports: None GI Surgical History: Reports: Colonoscopy Female Surgical History: Reports: None Male Surgical History: Reports: None Endocrine Surgical History: Reports: None Neurological Surgical History: Reports: None Musculoskeletal Surgical History: Reports: Arthroscopic Knee, Knee Replacement Oncologic Surgical History: Reports: None Dermatological Surgical History: Reports: None - SUBSTANCE USE Smoking Status *Q: Current Some Day Smoker Tobacco Use Within Last Twelve Months: Cigarettes Second Hand Smoke Exposure: No Days Per Week of Alcohol Use: 1 Number of Drinks Per Day: 0 Total Drinks Per Week: 0 Recreational Drug Use History: No - HOME MEDS Home Medications: Home Meds Multivitamin [Multivitamins] 1 tab PO DAILY 05/19/19 [History] Rosuvastatin [Crestor] 20 mg PO DAILY 05/19/19 [History] Cholecalciferol (Vitamin D3) [Vitamin D3] 5,000 unit PO DAILY 07/30/19 [History] Triamcinolone Acetonide [Triamcinolone Acetonide 0.1% Crm] 1 dose TOP BID PRN [History] Ascorbate Calcium [Vitamin C] 500 mg PO DAILY 10/06/19 [History] Aspirin [Marilu Chewable Aspirin] 81 mg PO DAILY 10/06/19 [History] Fish Oil/[place]-3 Fatty Acids [Fish Oil 1,000 MG] 1 gm PO DAILY 10/06/19 [History ] Ibuprofen 800 mg PO DAILY 10/06/19 [History] Meclizine [Antivert] 25 mg PO Q6H 10/06/19 [History] - CURRENT (IN HOUSE) MEDS Current Meds: Current Medications Acetaminophen (Tylenol) 975 mg PO ONETIME [facility] Last Admin: 10/07/19 07:16 Dose: 975 mg Bisacodyl (Dulcolax) 5 mg PO DAILY PRN PRN Reason: Constipation Morphine Sulfate 8 mg/Epinephrine HCl 0.3 mg/Cefuroxime Sodium 750 mg/Ketorolac Tromethamine 30 mg/Sodium Chloride 7.9 ml 0 mg .XX ASDIRECTED PRN PRN Reason: Pain Stop: 10/07/19 10:00 Cyclobenzaprine HCl (Flexeril) 10 mg PO TID PRN PRN Reason: Spasms Docusate Sodium (Colace) 100 mg PO BID [facility] Famotidine (Pepcid) 20 mg PO Q12H [facility] Lactated Ringer's (Ringers, Lactated) 1,000 mls @ 125 mls/hr IV ASDIRECTED [facility] Stop: 10/07/19 23:00 Cefazolin Sodium/Dextrose 2 gm (/ Premix) 50 mls @ 100 mls/hr IV Q8H [facility] Stop: 10/07/19 22:14 Ketorolac Tromethamine (Toradol) 15 mg IVPUSH Q6H PRN PRN Reason: Pain Lidocaine/Sodium Bicarbonate (Buffered Lidocaine 1% In Ns 8.4%) 0.25 ml IDERM ONETIME PRN PRN Reason: Prior to IV Start Stop: 10/07/19 18:00 Magnesium Hydroxide (Milk Of Magnesia) 30 ml PO BID PRN PRN Reason: Constipation Morphine Sulfate (Morphine) 2 mg IVPUSH Q2H PRN PRN Reason: Breakthrough Pain Naloxone HCl (Narcan) 0.1 mg IVPUSH Q5M PRN PRN Reason: Oversedation Ondansetron HCl (Zofran) 4 mg IVPUSH Q6H PRN PRN Reason: Nausea/Vomiting Oxycodone HCl (Oxycontin) 10 mg PO ONETIME [facility] Last Admin: 10/07/19 07:17 Dose: 10 mg Oxycodone/Acetaminophen (Percocet 325-5 Mg) 1 - 2 tab PO Q4H PRN PRN Reason: Pain Pregabalin (Lyrica) 50 mg PO ONETIME [facility] Last Admin: 10/07/19 07:17 Dose: 50 mg Rivaroxaban (Xarelto) 10 mg PO DAILY [facility] Senna (Senna) 8.6 mg PO BID PRN PRN Reason: Constipation Sodium Chloride (Saline Flush) 10 ml FLUSH ASDIRECTED PRN PRN Reason: Keep Vein Open Stop: 10/07/19 18:00 Discontinued Medications Bupivacaine HCl (Sensorcaine-Mpf 0.25%) Confirm Administered Dose 30 ml .ROUTE .STK-MED ONE Stop: 10/07/19 07:14 Cefazolin Sodium (Ancef) Confirm Administered Dose 2 gm .ROUTE .STK-MED ONE Stop: 10/07/19 07:14 Iodine (Iodine 2% Mild Tincture) Confirm Administered Dose 30 ml .ROUTE .STK- MED ONE Stop: 10/07/19 07:14 Tranexamic Acid (Cyklokapron) Confirm Administered Dose 1,000 mg .ROUTE .STK- MED ONE Stop: 10/07/19 07:14 Vancomycin HCl (Vancomycin) Confirm Administered Dose 1 gm .ROUTE .STK-MED ONE Stop: 10/07/19 07:14
[2019-10-07] MEDS ORDERED: Propofol 200 MG/20 ML SDV ONE ×2 (07:45→09:35)
[2019-10-07] MEDS ORDERED: fentaNYL 100 MCG/2 ML SDV ONE (07:46)
[2019-10-07] MEDS ORDERED: Midazolam 1 MG/ML 2 ML SDV ONE (07:46)
[2019-10-07] MEDS ORDERED: ceFAZolin 1 GM Vial ONE (08:15)
[2019-10-07] MEDS ORDERED: EPINEPHrine 1 MG/1 ML Amp ONE (08:16)
[2019-10-07] MEDS: Iodine/Sodium Iodide 2% Tincture 30 ML Bottle ONE ×2 (09:05→09:39)
[2019-10-07] MEDS: ceFAZolin 1 GM Vial ONE ×2 (09:06→09:42)
[2019-10-07] MEDS: Morphine 8 MG, EPINEPHrine 0.3 MG, Cefuroxime 750 MG, Ketorolac 30 MG, Sodium Chloride ... PRN ×10 (09:06→09:45)
[2019-10-07] MEDS: Vancomycin 1 GM SDV ONE ×2 (09:07→09:47)
[2019-10-07] MEDS: Bupivacaine 0.25% 10 ML SDV ONE ×2 (09:07→09:45)
--- NOTE | 2019-10-07 10:24 | PCM.POSTAN ---
POST ANESTHESIA ASSESSMENT - MENTAL STATUS Mental Status: Alert, Oriented - VITAL SIGNS Vital Signs: Last Vital Signs Temp 36.6 C 10/07/19 07:15 Pulse 93 10/07/19 07:15 Resp 16 10/07/19 07:15 BP 134/86 10/07/19 07:15 Pulse Ox 96 10/07/19 07:15 1019 97/63 88 16 96% 98.1F - RESPIRATORY Respiratory Status: Respiratory Rate WNL, Airway Patent, O2 Saturation Stable, Supplemental Oxygen - CARDIOVASCULAR CV Status: Pulse Rate WNL, Blood Pressure Stable - GASTROINTESTINAL GI Status: No Symptoms - PAIN Pain Score: 0 - POST OP HYDRATION Hydration Status: Adequate & Stable
[2019-10-07] MEDS ORDERED: EPINEPHrine 1 MG/ML SDV ONE (10:31)
[2019-10-07] MEDS ORDERED: Ropivacaine 0.5% 5 MG/ML 30 ML SDV ONE (10:31)
--- NOTE | 2019-10-07 10:50 | PCM.SN ---
- Free Text/Narrative Note: Left selective femoral nerve block at the adductor canal for post-procedure pain control Time Out: 1033 Start: 1036 End: 1040 Chart reviewed. Consent signed. Questions answered. Appropriate monitors applied. Time out performed. Left mid-shaft femur evaluated with ultrasound. Scanning medially femur, I was able to identify the femoral artery in the adductor canal. The saphenous nerve was lateral to the artery. The skin was prepped lateral to the ultrasound probe with chlorahexadine. 2 ml of 1% lidocaine was used for skin injection. The 21ga 4 insulated block needle was inserted under direct ultrasound guidance into the adductor canal. 20mL of 0.5 % ropivacaine with 1:200,000 epinephrine was injected cirmcumferentially about the nerve with intermittent negative aspiration every 5mL. Patient tolerated the procedure well. No complications noted. See pictures on progress note and vital signs on nurses notes. Block completed postoperatively. Micheal Christie, TALENT PARTNER
--- NOTE | 2019-10-07 11:20 | CR ---
Left knee: AP and lateral views left knee were obtained. Comparison: No prior left knee exam. Knee prosthesis is seen. Components are aligned. Soft tissue air is noted from the surgical procedure. Underlying bony structures are intact. Impression: 1. Satisfactory postop radiographic appearance of recently placed left knee prosthesis. Diagnostic code #2 This report was dictated in MDT
[2019-10-07] MEDS: Acetaminophen/oxyCODONE 325-5 MG Tab PO PRN ×3 (13:07→23:53)
[2019-10-07] MEDS: ceFAZolin 2 GM in Premix Bag 1 BAG IV SCH ×2 (15:26→23:51)
[2019-10-07] MEDS ORDERED: Magnesium Hydroxide 400 MG/5 ML Susp 30 ML Cup PO PRN (21:00)
[2019-10-07] MEDS ORDERED: Sennosides 8.6 MG Tab PO PRN (21:00)
[2019-10-07] MEDS: Famotidine 20 MG Tab PO SCH (21:05)
[2019-10-07] MEDS: Docusate Sodium 100 MG Cap PO SCH (21:05)
[2019-10-07] MEDS: Ketorolac 15 MG/ML SDV IVPUSH PRN (23:54)
[2019-10-08] MEDS: Acetaminophen/oxyCODONE 325-5 MG Tab PO PRN (06:44)
[2019-10-08] MEDS: Ketorolac 15 MG/ML SDV IVPUSH PRN (06:44)
--- NOTE | 2019-10-08 08:47 | PCM48HPAN ---
Post Anesthesia Note - EVALUATION WITHIN 48HRS OF ANESTHETIC Vital Signs in Normal Range: Yes Patient Participated in Evaluation: Yes Respiratory Function Stable: Yes Airway Patent: Yes Cardiovascular Function Stable: Yes Hydration Status Stable: Yes Pain Control Satisfactory: Yes Nausea and Vomiting Control Satisfactory: Yes Mental Status Recovered: Yes (doing well. no complaints) Vital Signs: Last Vital Signs Temp 98.4 F 10/08/19 04:55 Pulse 80 10/08/19 04:55 Resp 18 10/08/19 04:55 BP 118/75 10/08/19 04:55 Pulse Ox 92 L 10/08/19 04:55
[2019-10-08] MEDS: Docusate Sodium 100 MG Cap PO SCH (08:49)
[2019-10-08] MEDS: ceFAZolin 2 GM in Premix Bag 1 BAG IV SCH (08:49)
[2019-10-08] MEDS: Famotidine 20 MG Tab PO SCH (08:49)
--- NOTE | 2019-10-08 08:56 | PCM.SURGPN ---
- General Info Date of Service: 10/08/19 POD#: 1 Functional Status: Reports: Pain Controlled, Tolerating Diet, Ambulating, Urinating, Incentive Spirometry, Other (The pt feels prepared for discharge to home.) - Review of Systems General: Denies: Fever, Chills Pulmonary: Denies: Shortness of Breath Cardiovascular: Denies: Chest Pain Gastrointestinal: Denies: Abdominal Pain - Patient Data Vitals - Most Recent: Last Vital Signs Temp 98.4 F 10/08/19 04:55 Pulse 80 10/08/19 04:55 Resp 18 10/08/19 04:55 BP 118/75 10/08/19 04:55 Pulse Ox 92 L 10/08/19 04:55 Weight - Most Recent: 187 lb 6.4 oz I&O - Last 24 Hours: Intake & Output 10/07/19 10/08/19 10/08/19 22:59 06:59 14:59 Intake Total 2340 650 Output Total 0 2300 Balance 2340 -1650 Lab Results Last 24 Hrs: Laboratory Results - last 24 hr 10/08/19 10/08/19 Range/Units 04:55 04:55 WBC 11.30 H (4.23-9.07) K/mm3 RBC 4.79 (4.63-6.08) M/mm3 Hgb 13.2 L (13.7-17.5) gm/dl Hct 40.6 (40.1-51.0) % MCV 84.8 (79.0-92.2) fl MCH 27.6 (25.7-32.2) pg MCHC 32.5 (32.2-35.5) g/dl RDW Std Deviation 43.3 (35.1-43.9) fL Plt Count 198 (163-337) K/mm3 MPV 11.3 (9.4-12.3) fl Sodium 137 (136-145) mEq/L Potassium 4.2 (3.5-5.1) mEq/L Chloride 100 (98-107) mEq/L Carbon Dioxide 28 (21-32) mEq/L Anion Gap 13.2 (5-15) BUN 16 (7-18) mg/dL Creatinine 1.2 (0.7-1.3) mg/dL Est Cr Clr Drug Dosing 63.33 mL/min Estimated GFR (MDRD) > 60 (>60) mL/min BUN/Creatinine Ratio 13.3 L (14-18) Glucose 123 H (74-106) mg/dL Calcium 8.2 L (8.5-10.1) mg/dL Total Bilirubin 0.5 (0.2-1.0) mg/dL AST 14 L (15-37) U/L ALT 25 (16-63) U/L Alkaline Phosphatase 70 (46-116) U/L Total Protein 6.2 L (6.4-8.2) g/dl Albumin 2.8 L (3.4-5.0) g/dl Globulin 3.4 gm/dL Albumin/Globulin Ratio 0.8 L (1-2) Med Orders - Current: Current Medications Bisacodyl (Dulcolax) 5 mg PO DAILY PRN PRN Reason: Constipation Cyclobenzaprine HCl (Flexeril) 10 mg PO TID PRN PRN Reason: Spasms Last Admin: 10/07/19 15:56 Dose: 10 mg Docusate Sodium (Colace) 100 mg PO BID [facility] Last Admin: 10/08/19 08:49 Dose: 100 mg Famotidine (Pepcid) 20 mg PO Q12H [facility] Last Admin: 10/08/19 08:49 Dose: 20 mg Ketorolac Tromethamine (Toradol) 15 mg IVPUSH Q6H PRN PRN Reason: Pain Last Admin: 10/08/19 06:44 Dose: 15 mg Magnesium Hydroxide (Milk Of Magnesia) 30 ml PO BID PRN PRN Reason: Constipation Morphine Sulfate (Morphine) 2 mg IVPUSH Q2H PRN PRN Reason: Breakthrough Pain Naloxone HCl (Narcan) 0.1 mg IVPUSH Q5M PRN PRN Reason: Oversedation Ondansetron HCl (Zofran) 4 mg IVPUSH Q6H PRN PRN Reason: Nausea/Vomiting Oxycodone/Acetaminophen (Percocet 325-5 Mg) 1 - 2 tab PO Q4H PRN PRN Reason: Pain Last Admin: 10/08/19 06:44 Dose: 2 tab Rivaroxaban (Xarelto) 10 mg PO DAILY [facility] Last Admin: 10/08/19 08:49 Dose: 10 mg Senna (Senna) 8.6 mg PO BID PRN PRN Reason: Constipation Discontinued Medications Acetaminophen (Tylenol) 975 mg PO ONETIME [facility] Last Admin: 10/07/19 07:16 Dose: 975 mg Bupivacaine HCl (Sensorcaine-Mpf 0.25%) Confirm Administered Dose 30 ml .ROUTE .STK-MED ONE Stop: 10/07/19 07:14 Last Admin: 10/07/19 09:45 Dose: 30 ml Cefazolin Sodium (Ancef) Confirm Administered Dose 2 gm .ROUTE .STK-MED ONE Stop: 10/07/19 07:14 Last Admin: 10/07/19 09:42 Dose: 2 gm Cefazolin Sodium (Ancef) Confirm Administered Dose 2 gm .ROUTE .STK-MED ONE Stop: 10/07/19 08:16 Morphine Sulfate 8 mg/Epinephrine HCl 0.3 mg/Cefuroxime Sodium 750 mg/Ketorolac Tromethamine 30 mg/Sodium Chloride 7.9 ml 0 mg .XX ASDIRECTED PRN PRN Reason: Pain Stop: 10/07/19 10:00 Last Admin: 10/07/19 09:45 Dose: 788.3 mg Epinephrine HCl (Adrenalin) Confirm Administered Dose 1 mg .ROUTE .STK-MED ONE Stop: 10/07/19 08:17 Epinephrine HCl (Adrenalin) Confirm Administered Dose 1 mg .ROUTE .STK-MED ONE Stop: 10/07/19 10:32 Fentanyl (Sublimaze) Confirm Administered Dose 100 mcg .ROUTE .STK-MED ONE Stop: 10/07/19 07:47 Lactated Ringer's (Ringers, Lactated) 1,000 mls @ 125 mls/hr IV ASDIRECTED [facility] Stop: 10/07/19 23:00 Last Admin: 10/07/19 07:20 Dose: 125 mls/hr Cefazolin Sodium/Dextrose 2 gm (/ Premix) 50 mls @ 100 mls/hr IV Q8H [facility] Stop: 10/08/19 08:44 Last Admin: 10/08/19 08:49 Dose: 100 mls/hr Iodine (Iodine 2% Mild Tincture) Confirm Administered Dose 30 ml .ROUTE .STK- MED ONE Stop: 10/07/19 07:14 Last Admin: 10/07/19 09:39 Dose: 18 ml Lidocaine/Sodium Bicarbonate (Buffered Lidocaine 1% In Ns 8.4%) 0.25 ml IDERM ONETIME PRN PRN Reason: Prior to IV Start Stop: 10/07/19 18:00 Last Admin: 10/07/19 07:20 Dose: 0.25 ml Midazolam HCl (Versed 1 Mg/Ml) Confirm Administered Dose 2 mg .ROUTE .STK-MED ONE Stop: 10/07/19 07:47 Oxycodone HCl (Oxycontin) 10 mg PO ONETIME [facility] Last Admin: 10/07/19 07:17 Dose: 10 mg Pregabalin (Lyrica) 50 mg PO ONETIME [facility] Last Admin: 10/07/19 07:17 Dose: 50 mg Propofol (Diprivan 20 Ml) Confirm Administered Dose 400 mg .ROUTE .STK-MED ONE Stop: 10/07/19 07:46 Propofol (Diprivan 20 Ml) Confirm Administered Dose 200 mg .ROUTE .STK-MED ONE Stop: 10/07/19 09:36 Ropivacaine (Naropin 0.5%) Confirm Administered Dose 30 ml .ROUTE .STK-MED ONE Stop: 10/07/19 10:32 Sodium Chloride (Saline Flush) 10 ml FLUSH ASDIRECTED PRN PRN Reason: Keep Vein Open Stop: 10/07/19 18:00 Tranexamic Acid (Cyklokapron) Confirm Administered Dose 1,000 mg .ROUTE .STK- MED ONE Stop: 10/07/19 07:14 Last Admin: 10/07/19 09:52 Dose: 1,000 mg Vancomycin HCl (Vancomycin) Confirm Administered Dose 1 gm .ROUTE .STK-MED ONE Stop: 10/07/19 07:14 Last Admin: 10/07/19 09:47 Dose: 1 gm - Exam Wound/Incisions: Dressing Dry and Intact General: Alert, Cooperative, No Acute Distress Lungs: Normal Respiratory Effort Extremities: Other (NVS intact for BLE. Lisbet's negative.) Sepsis Event Note - Evaluation Sepsis Screening Result: No Definite Risk - Focused Exam Vital Signs: Vital Signs Temp Pulse Resp BP Pulse Ox 10/08/19 04:55 98.4 F 80 18 118/75 92 L 10/08/19 00:30 99.3 F 10/07/19 23:40 91 94 L 10/07/19 23:39 101.8 F H 98 14 127/61 90 L 10/07/19 21:07 99.3 F Date Exam was Performed: 10/08/19 Time Exam was Performed: 08:56 - Problem List Review Problem List Initiated/Reviewed/Updated: Yes - My Orders Last 24 Hours: Active Orders 24 hr Category Date Time Status Ready for Discharge [RC] PER UNIT ROUTINE Care 10/08/19 08:33 Active Regular Diet [DIET] Diet 10/07/19 Lunch Active Acetaminophen/oxyCODONE [Percocet 325-5 MG] Med 10/07/19 09:00 Active 1 - 2 tab PO Q4H PRN Docusate Sodium [Colace] Med 10/07/19 21:00 Active 100 mg PO BID Famotidine [Pepcid] Med 10/07/19 21:00 Active 20 mg PO Q12H Magnesium Hydroxide [Milk of Magnesia] Med 10/07/19 21:00 Active 30 ml PO BID PRN Rivaroxaban [Xarelto] Med 10/08/19 09:00 Active 10 mg PO DAILY Sennosides [Senna] Med 10/07/19 21:00 Active 8.6 mg PO BID PRN bisacodyL [Dulcolax] Med 10/08/19 09:00 Active 5 mg PO DAILY PRN Medication Orders Bisacodyl (Dulcolax) 5 mg PO DAILY PRN PRN Reason: Constipation Cyclobenzaprine HCl (Flexeril) 10 mg PO TID PRN PRN Reason: Spasms Last Admin: 10/07/19 15:56 Dose: 10 mg Docusate Sodium (Colace) 100 mg PO BID [facility] Last Admin: 10/08/19 08:49 Dose: 100 mg Admin: 10/07/19 21:05 Dose: 100 mg Famotidine (Pepcid) 20 mg PO Q12H [facility] Last Admin: 10/08/19 08:49 Dose: 20 mg Admin: 10/07/19 21:05 Dose: 20 mg Ketorolac Tromethamine (Toradol) 15 mg IVPUSH Q6H PRN PRN Reason: Pain Last Admin: 10/08/19 06:44 Dose: 15 mg Admin: 10/07/19 23:54 Dose: 15 mg Magnesium Hydroxide (Milk Of Magnesia) 30 ml PO BID PRN PRN Reason: Constipation Morphine Sulfate (Morphine) 2 mg IVPUSH Q2H PRN PRN Reason: Breakthrough Pain Naloxone HCl (Narcan) 0.1 mg IVPUSH Q5M PRN PRN Reason: Oversedation Ondansetron HCl (Zofran) 4 mg IVPUSH Q6H PRN PRN Reason: Nausea/Vomiting Oxycodone/Acetaminophen (Percocet 325-5 Mg) 1 - 2 tab PO Q4H PRN PRN Reason: Pain Last Admin: 10/08/19 06:44 Dose: 2 tab Admin: 10/07/19 23:53 Dose: 2 tab Admin: 10/07/19 17:11 Dose: 2 tab Admin: 10/07/19 13:07 Dose: 1 tab Rivaroxaban (Xarelto) 10 mg PO DAILY [facility] Last Admin: 10/08/19 08:49 Dose: 10 mg Senna (Senna) 8.6 mg PO BID PRN PRN Reason: Constipation - Assessment Assessment (Free Text/Narrative):: POD#1 - left TKA - Plan Plan (Free Text/Narrative):: 1. Hgb 13.2. 2. The pt has been active in his room and walking in the halls. 3. Discharge to home today. The pt will have the assistance of his daughters. 4. Xarelto (hx tobacco use), frequent mobility, TEDs for VTE prophylaxis. The pt's case was discussed with Dr. Muir.
[2019-10-08] MEDS ORDERED: Rivaroxaban 10 MG Tab PO SCH (09:00)
[2019-10-08] MEDS ORDERED: Bisacodyl 5 MG Tab PO PRN (09:00)
--- NOTE | 2019-10-08 14:17 | PCM.DCSUM1 ---
Discharge Summary - Hospital Course Brief History: Fabian is a 59 yo male who underwent left TKA with Dr. Muir on 10-06. The procedure was completed under spinal anesthesia with sedation and a post-operative adductor canal block was provided. The pt tolerated the procedure well and was admitted to the Medical-Surgical Unit. The pt's Hospital course was uneventful. The pt's Hgb on POD#1 was 13.2. On POD#1, Xarelto 10mg PO daily was initiated for VTE prophylaxis. SCDs and TEDs were also ordered. A Mepilex dressing was placed at the incision site at the time of surgery and remained clean and dry. The pt participated in P.T. and O.T. and progressed well. The pt was allowed to WBAT. On POD#1, the pt was deemed appropriate to discharge to home with his family. - Discharge Data Discharge Date: 10/08/19 Discharge Disposition: Home, Self-Care 01 Condition: Good - Referral to Home Health Primary Care Physician: Kota Perez MD - Patient Summary/Data Consults: Consultations 10/07/19 05:35 PT Evaluation and Treatment [CONS] Routine 10/07/19 05:36 OT Evaluation and Treatment [CONS] Routine - Patient Instructions Diet: Usual Diet as Tolerated Activity: Apply Ice, As Tolerated, Elevate Extremity, Full Weight Bearing Driving: Do Not Drive Showering/Bathing: May Shower Wound/Incision Care: Keep Operative Site/Wound Site Clean and Dry, Do NOT Change Dressing Notify Provider of: Fever, Increased Pain, Swelling and Redness, Drainage, Nausea and/or Vomiting Other/Special Instructions: Please get up and moving around EVERY HOUR while awake. This helps to prevent blood clots. Please use your walker and have help with mobility as needed. Take a short walk in your home every hour while awake. Please take the Xarelto blood thinner medication daily as directed. At home, please complete the exercises that you learned during the Hospital stay. Schedule for physical therapy. Use the pain medication as needed. The medication may cause drowsiness and constipation. Contact your primary care provider for instructions if you are constipated. You may use a stool softener like docusate sodium or Colace 100mg twice daily and/or a laxative like Miralax daily for constipation. Increase your water and fiber intake while you are using the pain medication. Discontinue use of the pain medication as soon as able. Please do not use other medications that may cause drowsiness (other pain medications, anxiety pills, cold medications, sleeping pills, etc) while using the prescription pain medication. Do not use alcohol while using the pain medication. You may use acetaminophen or Tylenol for pain management, however, please ensure you are not using over 4000 mg or 4 grams of acetaminophen per day from all sources. Your pain medication has 325mg of acetaminophen per tablet. At this time, please do not use ibuprofen (Motrin, Advil) or naproxen (Aleve) for pain management as you are using the Xarelto. When the Xarelto course is completed in 4 to 6 weeks, you could use ibuprofen or naproxen for pain management (if this is allowed by your primary care provider). Wear the REJI hose during the day and you may remove these at night. Elevate the limb to decrease swelling. Place ice to the area often. Place a towel between your skin and the blue pad. Use the incentive spirometer often. Take deep breaths throughout the day. Please keep the dressing in place until follow-up. Notify the Clinic if the dressing becomes saturated. Increase your protein intake while you are healing. If you have diabetes, please closely monitor your blood sugars and notify your primary care provider with abnormal values. Elevated blood sugars increases the risk of infection. Call the Clinic with questions or concerns - [phone]. - Discharge Plan *PRESCRIPTION DRUG MONITORING PROGRAM REVIEWED*: No *COPY OF PRESCRIPTION DRUG MONITORING REPORT IN PATIENT AALIYAH: No Prescriptions/Med Rec: Acetaminophen/oxyCODONE [Percocet 325-5 MG] 1 - 2 tab PO Q4H PRN #50 tablet PRN Reason: Pain Cyclobenzaprine [Flexeril] 10 mg PO BID PRN #20 tablet PRN Reason: Spasms Rivaroxaban [Xarelto] 10 mg PO DAILY #30 tablet Home Medications: Home Meds Multivitamin [Multivitamins] 1 tab PO DAILY 05/19/19 [History] Rosuvastatin [Crestor] 20 mg PO DAILY 05/19/19 [History] Cholecalciferol (Vitamin D3) [Vitamin D3] 5,000 unit PO DAILY 07/30/19 [History] Triamcinolone Acetonide [Triamcinolone Acetonide 0.1% Crm] 1 dose TOP BID PRN [History] Meclizine [Antivert] 25 mg PO Q6H PRN 10/06/19 [History] Acetaminophen/oxyCODONE [Percocet 325-5 MG] 1 - 2 tab PO Q4H PRN #50 tablet [Rx] Cyclobenzaprine [Flexeril] 10 mg PO BID PRN #20 tablet 10/08/19 [Rx] Docusate Sodium [Colace] 100 mg PO BID cap 10/08/19 [Rx] Famotidine [Pepcid] 20 mg PO Q12H tablet 10/08/19 [Rx] Rivaroxaban [Xarelto] 10 mg PO DAILY #30 tablet 10/08/19 [Rx] Sennosides [Senna] 8.6 mg PO BID PRN tablet 10/08/19 [Rx] bisacodyL [Dulcolax] 5 mg PO DAILY PRN tablet 10/08/19 [Rx] Patient Handouts: Rivaroxaban oral tablets, Total Knee Replacement, Easy-to- Read Referrals: Lillian Abad PA-C [Physician Lock Master] - (You have 4 follow ups with Lillian Abad and they are as follows: 10/15/2019-0945am 10/15/2019-1100am 10/22/2019-0830am 11/19/2019-0830am) - Discharge Summary/Plan Comment DC Time >30 min.: No - Patient Data Vitals - Most Recent: Last Vital Signs Temp 99.0 F 10/08/19 07:44 Pulse 88 10/08/19 07:44 Resp 18 10/08/19 07:44 BP 131/92 H 10/08/19 07:44 Pulse Ox 87 L 10/08/19 07:44 Weight - Most Recent: 187 lb 6.4 oz I&O - Last 24 hours: Intake & Output 10/07/19 10/08/19 10/08/19 22:59 06:59 14:59 Intake Total 2340 650 360 Output Total 0 2300 Balance 2340 -1650 360 Lab Results - Last 24 hrs: Laboratory Results - last 24 hr 10/08/19 10/08/19 Range/Units 04:55 04:55 WBC 11.30 H (4.23-9.07) K/mm3 RBC 4.79 (4.63-6.08) M/mm3 Hgb 13.2 L (13.7-17.5) gm/dl Hct 40.6 (40.1-51.0) % MCV 84.8 (79.0-92.2) fl MCH 27.6 (25.7-32.2) pg MCHC 32.5 (32.2-35.5) g/dl RDW Std Deviation 43.3 (35.1-43.9) fL Plt Count 198 (163-337) K/mm3 MPV 11.3 (9.4-12.3) fl Sodium 137 (136-145) mEq/L Potassium 4.2 (3.5-5.1) mEq/L Chloride 100 (98-107) mEq/L Carbon Dioxide 28 (21-32) mEq/L Anion Gap 13.2 (5-15) BUN 16 (7-18) mg/dL Creatinine 1.2 (0.7-1.3) mg/dL Est Cr Clr Drug Dosing 63.33 mL/min Estimated GFR (MDRD) > 60 (>60) mL/min BUN/Creatinine Ratio 13.3 L (14-18) Glucose 123 H (74-106) mg/dL Calcium 8.2 L (8.5-10.1) mg/dL Total Bilirubin 0.5 (0.2-1.0) mg/dL AST 14 L (15-37) U/L ALT 25 (16-63) U/L Alkaline Phosphatase 70 (46-116) U/L Total Protein 6.2 L (6.4-8.2) g/dl Albumin 2.8 L (3.4-5.0) g/dl Globulin 3.4 gm/dL Albumin/Globulin Ratio 0.8 L (1-2) Med Orders - Current: Current Medications Discontinued Medications Acetaminophen (Tylenol) 975 mg PO ONETIME [facility] Last Admin: 10/07/19 07:16 Dose: 975 mg Bisacodyl (Dulcolax) 5 mg PO DAILY PRN PRN Reason: Constipation Bupivacaine HCl (Sensorcaine-Mpf 0.25%) Confirm Administered Dose 30 ml .ROUTE .STK-MED ONE Stop: 10/07/19 07:14 Last Admin: 10/07/19 09:45 Dose: 30 ml Cefazolin Sodium (Ancef) Confirm Administered Dose 2 gm .ROUTE .STK-MED ONE Stop: 10/07/19 07:14 Last Admin: 10/07/19 09:42 Dose: 2 gm Cefazolin Sodium (Ancef) Confirm Administered Dose 2 gm .ROUTE .STK-MED ONE Stop: 10/07/19 08:16 Morphine Sulfate 8 mg/Epinephrine HCl 0.3 mg/Cefuroxime Sodium 750 mg/Ketorolac Tromethamine 30 mg/Sodium Chloride 7.9 ml 0 mg .XX ASDIRECTED PRN PRN Reason: Pain Stop: 10/07/19 10:00 Last Admin: 10/07/19 09:45 Dose: 788.3 mg Cyclobenzaprine HCl (Flexeril) 10 mg PO TID PRN PRN Reason: Spasms Last Admin: 10/07/19 15:56 Dose: 10 mg Docusate Sodium (Colace) 100 mg PO BID [facility] Last Admin: 10/08/19 08:49 Dose: 100 mg Epinephrine HCl (Adrenalin) Confirm Administered Dose 1 mg .ROUTE .STK-MED ONE Stop: 10/07/19 08:17 Epinephrine HCl (Adrenalin) Confirm Administered Dose 1 mg .ROUTE .STK-MED ONE Stop: 10/07/19 10:32 Famotidine (Pepcid) 20 mg PO Q12H [facility] Last Admin: 10/08/19 08:49 Dose: 20 mg Fentanyl (Sublimaze) Confirm Administered Dose 100 mcg .ROUTE .STK-MED ONE Stop: 10/07/19 07:47 Lactated Ringer's (Ringers, Lactated) 1,000 mls @ 125 mls/hr IV ASDIRECTED [facility] Stop: 10/07/19 23:00 Last Admin: 10/07/19 07:20 Dose: 125 mls/hr Cefazolin Sodium/Dextrose 2 gm (/ Premix) 50 mls @ 100 mls/hr IV Q8H [facility] Stop: 10/08/19 08:44 Last Admin: 10/08/19 08:49 Dose: 100 mls/hr Iodine (Iodine 2% Mild Tincture) Confirm Administered Dose 30 ml .ROUTE .STK- MED ONE Stop: 10/07/19 07:14 Last Admin: 10/07/19 09:39 Dose: 18 ml Ketorolac Tromethamine (Toradol) 15 mg IVPUSH Q6H PRN PRN Reason: Pain Last Admin: 10/08/19 06:44 Dose: 15 mg Lidocaine/Sodium Bicarbonate (Buffered Lidocaine 1% In Ns 8.4%) 0.25 ml IDERM ONETIME PRN PRN Reason: Prior to IV Start Stop: 10/07/19 18:00 Last Admin: 10/07/19 07:20 Dose: 0.25 ml Magnesium Hydroxide (Milk Of Magnesia) 30 ml PO BID PRN PRN Reason: Constipation Midazolam HCl (Versed 1 Mg/Ml) Confirm Administered Dose 2 mg .ROUTE .STK-MED ONE Stop: 10/07/19 07:47 Morphine Sulfate (Morphine) 2 mg IVPUSH Q2H PRN PRN Reason: Breakthrough Pain Naloxone HCl (Narcan) 0.1 mg IVPUSH Q5M PRN PRN Reason: Oversedation Ondansetron HCl (Zofran) 4 mg IVPUSH Q6H PRN PRN Reason: Nausea/Vomiting Oxycodone HCl (Oxycontin) 10 mg PO ONETIME [facility] Last Admin: 10/07/19 07:17 Dose: 10 mg Oxycodone/Acetaminophen (Percocet 325-5 Mg) 1 - 2 tab PO Q4H PRN PRN Reason: Pain Last Admin: 10/08/19 06:44 Dose: 2 tab Pregabalin (Lyrica) 50 mg PO ONETIME [facility] Last Admin: 10/07/19 07:17 Dose: 50 mg Propofol (Diprivan 20 Ml) Confirm Administered Dose 400 mg .ROUTE .STK-MED ONE Stop: 10/07/19 07:46 Propofol (Diprivan 20 Ml) Confirm Administered Dose 200 mg .ROUTE .STK-MED ONE Stop: 10/07/19 09:36 Rivaroxaban (Xarelto) 10 mg PO DAILY [facility] Last Admin: 10/08/19 08:49 Dose: 10 mg Ropivacaine (Naropin 0.5%) Confirm Administered Dose 30 ml .ROUTE .STK-MED ONE Stop: 10/07/19 10:32 Senna (Senna) 8.6 mg PO BID PRN PRN Reason: Constipation Sodium Chloride (Saline Flush) 10 ml FLUSH ASDIRECTED PRN PRN Reason: Keep Vein Open Stop: 10/07/19 18:00 Tranexamic Acid (Cyklokapron) Confirm Administered Dose 1,000 mg .ROUTE .STK- MED ONE Stop: 10/07/19 07:14 Last Admin: 10/07/19 09:52 Dose: 1,000 mg Vancomycin HCl (Vancomycin) Confirm Administered Dose 1 gm .ROUTE .STK-MED ONE Stop: 10/07/19 07:14 Last Admin: 10/07/19 09:47 Dose: 1 gm
--- NOTE | 2019-10-11 13:18 | PCM.OPNOTE ---
- General Post-Op/Procedure Note Date of Surgery/Procedure: 10/07/19 Operative Procedure(s): left total knee arthroplasty Pre Op Diagnosis: left knee osteoarthrosis Post-Op Diagnosis: Same Anesthesia Technique: Local, MAC, Spinal Primary Surgeon: Liborio Muir Anesthesia Provider: [place]k [place] [employer] Operator: Lillian Abad [employer] Furnace Operator: Porsha Barrera in mLs: 5 Complications: None Condition: Good Free Text/Narrative:: 6 femur 5 tibia 9mm 35x10
--- NOTE | 2019-10-11 14:07 | OR ---
DATE OF OPERATION: 10/07/2019 SURGEON: Liborio Muir MD OPERATION PERFORMED: Left total knee arthroplasty. PREOPERATIVE DIAGNOSIS: Left knee osteoarthrosis. POSTOPERATIVE DIAGNOSIS: Left knee osteoarthrosis. ANESTHESIA: Local MAC with spinal. ANESTHESIA PROVIDER: Alek Hills CRNA ASSISTANTS: Lillian Abad PA-C, and Porsha Barrera LPN. ESTIMATED BLOOD LOSS: 5 mL. COMPLICATIONS: None. CONDITION: Stable. IMPLANTS: 1. [place] size 6 cemented PS femur. 2. [place] size 5 cemented Gilbert tibial base plate. 3. [place] size 5, 9 mm PS X3 polyethylene insert. 4. [place] size 35 x 10 mm cemented asymmetric patella. DESCRIPTION OF PROCEDURE: The patient was identified in the preop holding area. Proper site was marked and identified by the surgeon. The patient was taken back to the operating theater. After adequate anesthesia, the patient's left lower extremity had a nonsterile tourniquet applied and it was sterilely prepped and draped in the usual sterile fashion. OR time-out was performed. The patient received 2 g IV Ancef. At this time, the left lower extremity was exsanguinated. Tourniquet was insufflated to 300 mmHg. Standard medial parapatellar incision was made. Medial parapatellar arthrotomy was created. Deep fibers of the MCL were raised and anterior fat pad was resected. At this time, attention was turned to the patella. Patella measured a 26, it was resected to a 15 for a 35 x 10 mm patella. Drill holes were then drilled and found to be in adequate position. The drill was then drilled in the distal femur and the intramedullary distal femoral cutting guide was then placed. 8 mm was resected off the distal femur and was found to be an adequate resection. Sizing guide was placed. It was found to be a size 6 cemented PS femur that was shown on the implant record at the beginning of this dictation. The drill holes were drilled for the epicondylar axis using Whitesides line and epicondyles as reference. At this time, the 4-in-1 cutting block was placed. An anterior posterior and anterior and posterior chamfer cuts were then completed. Box cut was completed. Attention was turned to the tibia. The posterior medial lateral retractors were placed. The extramedullary tibial guide was placed. It was placed in the old footprint of the ACL. It was aligned with the center of the ankle and 0 degrees of slope, 9 mm was then resected off the unaffected side. There was found to be an acceptable reduction. At this time, posterior osteophytes were removed along with medial and lateral meniscus. A trial implant was placed with a correct sized tibia that was mentioned at the beginning of the dictation. A [place] size 5, 9 mm PS X3 polyethylene insert was then placed. The patient's knee was brought through range of motion. The patella was tracking centrally and was stable to varus and valgus stress. Alignment was found to be roughly at 0 degrees. The tibia was stamped and drilled in proper rotation. All cut surfaces were irrigated and dried. The universal tibial base plate was impacted in place. Next, the [place] size 6 cemented PS femur impacted into place and the [place] size 5, 9 mm PS X3 polyethylene insert was placed. The patient's knee was brought into full extension. The patella was then cemented in place at this time. One liter dilute Betadine solution was irrigated through the knee along with 3 L of pulse lavage irrigation with Ancef. Periarticular injection was then completed. The patient's knee was brought through a range of motion. Once the cement had time to set up and it was found to be stable to varus valgus stress, the patella was tracking centrally with full range of motion. At this time, a #2 barbed suture was used for closure of the medial parapatellar arthrotomy. Topical tranexamic acid was placed. 2-0 Vicryl was used subcutaneously, Prineo was used for the skin. The patient tolerated the procedure well and was sent to the PACU in stable condition. ISMA /[id number] MAHOGANY
== END 2019-10-08 11:20 | disposition home or self-care (01) | DRG 302 ==
LOC: JD.SDS 06:55 → JD.MS 06:58 → JD.SDS 07:00 → JD.MS 07:01
PROVIDERS: ADMIT Orthopaedic Surgery; ATTEND Orthopaedic Surgery
PROC: 0SRD0J9 Replacement of Left Knee Joint with Synthetic Substitute, Cemented, Open Approach (ICD-10-PCS; principal; 2019-10-07)
DX: M17.12 Unilateral primary osteoarthritis, left knee (principal); H54.7 Unspecified visual loss; E78.00 Pure hypercholesterolemia, unspecified; F17.210 Nicotine dependence, cigarettes, uncomplicated; K21.9 Gastro-esophageal reflux disease without esophagitis; Z79.82 Long term (current) use of aspirin; Z79.899 Other long term (current) drug therapy; Z79.2 Long term (current) use of antibiotics
CPT/HCPCS: 36415; 73560-26-LT; 73560-LT; 80053; 85027; 87641; 97110-GP; 97116-GP; 97161-GP; 97165-GO; A9270-GY; C1713; C1776; J0171; J0690; J0697; J1885; J2250; J2270; J2704; J2795; J3010; J3370; J3490; J7120

== ENCOUNTER 2024-06-29 17:43 | Emergency (ER) | payer MEDICARE ==
[2024-06-29] MEDS ORDERED: Sodium Chloride 0.9% 10 ML Syringe FLUSH PRN (17:46)
[2024-06-29] MEDS: Sodium Chloride 0.9% 1,000 ML IV ONE (17:54)
[2024-06-29 18:02] LABS: BASOPHILS ABSOLUTE AUTO 0.1 K/mm3 (0.0-0.2); BASOPHILS PERCENT AUTO 0.4 % (0.0-1.0); EOSINOPHILS ABSOLUTE AUTO 0.3 K/mm3 (0.0-0.4); EOSINOPHILS PERCENT AUTO 2.8 % (0.0-6.0); HEMATOCRIT 44.8 % (42.0-52.0); HEMOGLOBIN 15.6 gm/dl (14.0-18.0); IMMATURE GRAN PERCENT AUTO 0.8 % (0.0-0.4); LYMPHOCYTES ABSOLUTE AUTO 2.2 K/mm3 (1.0-4.8); LYMPHOCYTES PERCENT AUTO 18.4 % (24.0-44.0); MEAN CORPUSCULAR HEMOGLOBIN 29.7 pg (28.0-32.0); MEAN CORPUSCULAR HGB CONC 34.8 g/dl (32.0-36.0); MEAN CORPUSCULAR VOLUME 85.2 fl (83.0-99.0); MEAN PLATELET VOLUME 10.8 fl (9.4-12.4); MONOCYTES ABSOLUTE AUTO 1.1 K/mm3 (0.0-0.8); MONOCYTES PERCENT AUTO 8.8 % (0.0-8.0); NEUTROPHILS ABSOLUTE AUTO 8.2 K/mm3 (1.8-7.7); NEUTROPHILS PERCENT AUTO 68.8 % (41.0-71.0); PLATELET COUNT,PLT 199 K/mm3 (150-400); RED BLOOD CELL COUNT 5.26 M/mm3 (4.52-5.90); WHITE BLOOD CELL COUNT,WBC 11.97 K/mm3 (3.9-11.3)
[2024-06-29] MEDS: HYDROmorphone 0.5 MG/0.5 ML Syringe IVPUSH ONE ×2 (18:22→19:49)
[2024-06-29] MEDS: Tranexamic Acid 1,000 MG/10 ML Vial IVPUSH ONE (18:22)
[2024-06-29 18:27] LABS: A/G RATIO 1.1 (1-2); ALBUMIN 3.5 g/dl (3.4-5.0); ANION GAP 14.6 (5-15); BILIRUBIN TOTAL 0.7 mg/dL (0.2-1.0); BUN/CREATININE RATIO 14.6 (14-18); CALCIUM 8.7 mg/dL (8.5-10.1); CREATININE 1.3 mg/dL (0.7-1.3); EST CRCL DRUG DOSING (CG) 52.96 mL/min; ETHANOL BLOOD MEDICAL 0.01 gm% (0.00); POTASSIUM,K 3.6 mEq/L (3.5-5.1); PROTEIN TOTAL,TP 6.8 g/dl (6.4-8.2)
[2024-06-29] MEDS: Lidocaine/Epineph/Tetracaine 3 ML Syringe TOP ONE (19:00)
[2024-06-29] MEDS: Iopamidol 612 MG/ML 30 ML SDV IVPUSH ONE ×2 (19:22)
[2024-06-29] MEDS: Iopamidol 612 MG/ML 100 ML Bottle IVPUSH ONE (19:22)
[2024-06-29] MEDS: Ondansetron 4 MG/2 ML SDV IVPUSH ONE (20:22)
== END 2024-06-29 22:00 | disposition home or self-care (01) ==
LOC: JD.ED 17:43
DX: S01.01XA Laceration without foreign body of scalp, initial encounter (principal); S93.401A Sprain of unspecified ligament of right ankle, initial encounter; S60.511A Abrasion of right hand, initial encounter; S60.811A Abrasion of right wrist, initial encounter; E78.00 Pure hypercholesterolemia, unspecified; F17.210 Nicotine dependence, cigarettes, uncomplicated; Z79.899 Other long term (current) drug therapy; V86.05XA Driver of 3- or 4- wheeled all-terrain vehicle (ATV) injured in traffic accident, initial encounter
CPT/HCPCS: 12002; 36415; 70450; 71045; 71260; 72125; 73090; 73610; 73630; 74177; 80053; 80307; 83690; 85025; 96361; 96374; 96375; 96376; 99285; A9270; J1171; J2405; J7030; Q9967; 99283

== ENCOUNTER 2024-09-27 06:45 | Day surgery (SDC) | payer MEDICARE, OTHER ==
[~2024-09-27 06:45] MED LIST changes: +Bupivacaine 0.25% 10 ML SDV ONE; -Cyclobenzaprine 10 MG Tab PO PRN; -Lactated Ringers 1,000 ML IV SCH; -Lidocaine 1%/Sod Bicarbonate in NS 8.4% 1 ML Syringe IDERM PRN; -Morphine 2 MG/ML Syringe IVPUSH PRN; -Naloxone 0.4 MG/ML SDV IVPUSH PRN; -Ondansetron 4 MG/2 ML SDV IVPUSH PRN; +Sodium Chloride 0.9% 10 ML Syringe FLUSH SCH
[2024-09-27] MEDS ORDERED: Midazolam 1 MG/ML 2 ML SDV ONE (06:56)
[2024-09-27] MEDS ORDERED: dexmedeTOMIDine HCl 200 MCG/2 ML SDV ONE (06:56)
[2024-09-27] MEDS ORDERED: Ropivacaine 0.5% 5 MG/ML 30 ML SDV ONE (06:56)
[2024-09-27] MEDS ORDERED: fentaNYL 100 MCG/2 ML SDV ONE ×2 (06:56→09:05)
[2024-09-27] MEDS: Lactated Ringers 1,000 ML IV SCH (07:00)
[2024-09-27] MEDS ORDERED: Propofol 200 MG/20 ML SDV ONE ×3 (07:24→09:08)
[2024-09-27] MEDS ORDERED: Rocuronium 50 MG/5 ML Vial ONE (07:25)
[2024-09-27] MEDS ORDERED: Ondansetron 4 MG/2 ML SDV ONE (07:25)
[2024-09-27] MEDS ORDERED: Lidocaine 1% 5 ML VIAL ONE (07:25)
[2024-09-27] MEDS ORDERED: Dexamethasone 4 MG/ML 5 ML MDV ONE (07:25)
[2024-09-27] MEDS: Acetaminophen 325 MG Tab PO ONE (07:33)
[2024-09-27] MEDS: Pregabalin 25 MG Cap PO ONE (07:33)
[2024-09-27] MEDS: oxyCODONE ER 10 MG TAB.ER PO ONE (07:33)
[2024-09-27] MEDS ORDERED: Famotidine 20 MG/2 ML SDV IVPUSH ONE (07:51)
[2024-09-27] MEDS ORDERED: ceFAZolin 2 GM Vial ONE (08:08)
[2024-09-27] MEDS ORDERED: Phenylephrine 1% 10 MG/ML SDV ONE (08:12)
[2024-09-27] MEDS ORDERED: ePHEDrine 50 MG/ML SDV ONE (08:20)
[2024-09-27] MEDS ORDERED: Lactated Ringers 1,000 ML ONE (08:28)
[2024-09-27] MEDS ORDERED: HYDROmorphone 0.5 MG/0.5 ML Syringe IVPUSH PRN (08:46)
[2024-09-27] MEDS ORDERED: fentaNYL 100 MCG/2 ML SDV IVPUSH PRN (08:46)
[2024-09-27] MEDS ORDERED: Ondansetron 4 MG/2 ML SDV IVPUSH PRN (08:46)
[2024-09-27] MEDS ORDERED: Ketorolac 30 MG/ML SDV ONE (09:09)
[2024-09-27] MEDS ORDERED: Sugammadex Sodium 200 MG/2 ML VIAL IV ONE (09:09)
[2024-09-27] MEDS ORDERED: oxyCODONE 5 MG Tab PO PRN (09:28)
[2024-09-27] MEDS: Tranexamic Acid 1,000 MG/10 ML Vial ONE (15:48)
[2024-09-27] MEDS: VANCOmycin 1 GM SDV ONE (15:51)
== END 2024-09-27 12:30 | disposition home or self-care (01) ==
LOC: JD.SDS 06:45
PROVIDERS: ATTEND Orthopaedic Surgery
DX: M19.011 Primary osteoarthritis, right shoulder (principal); K21.9 Gastro-esophageal reflux disease without esophagitis; E78.00 Pure hypercholesterolemia, unspecified; Z79.899 Other long term (current) drug therapy
CPT/HCPCS: 23472; 64415; 76000; 97116; 97161; 97530; A9270; J0690; J1100; J1885; J2003; J2250; J2371; J2405; J2704; J2795; J3010; J7120; 01638; C1713; C1769; C1776; J0665; J3490